=== PATIENT | male | born 1960 | race Caucasian/White ===

== ENCOUNTER 2019-04-10 09:59 | Inpatient (IN) | payer OTHER ==
[2019-04-10] MEDS ORDERED: NITROGLYCERIN SL TABS 0.4 MG TAB SUBLINGUAL STA ×3 (10:02)
[2019-04-10] MEDS ORDERED: ASPIRIN 81 MG PO STA (10:02)
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
[2019-04-10] MEDS ORDERED: LIDOCAINE 1% INJ 10MG/ML (20 ML MDV) ONE (10:11)
[2019-04-10] MEDS ORDERED: HEPARIN SODIUM,PORCINE 5,000 UNIT/ML 1 ML VIAL IV ONE (10:12)
--- NOTE | 2019-04-10 10:18 | XR ---
EXAMINATION TYPE: XR chest 1V portable DATE OF EXAM: 04/10/2019 Comparison: None Clinical History: 59-year-old male with chest pain Findings: The cardiomediastinal silhouette, aorta, and pulmonary vasculature are within normal limits. Periphe ral lung densities related to overlying soft tissue. Otherwise, lungs and pleural spaces are clear. Impression: No acute cardiopulmonary process.
--- NOTE | 2019-04-10 10:18 | P.CRDCN ---
History of Present Illness Consult date: 04/10/19 History of present illness: This is a 59-year-old gentleman with no significant past medical history has been having intermittent chest pains for the last 2 days. Around 2:30 this morning, the pain became more steady and described as a burning sensation across the precordial area with radiation to the left arm. Patient has some nausea. He has taken some Motrin at home. His patient was still having chest discomfort described as 5 on a scale of 1-10. His EKG showed ST elevation in the anterior lateral leads suggestive of anterolateral NJ. Patient is advised to have a cardiac catheterization with intervention of primary intervention. No arrhythmias, at this time Review of Systems Not obtained Past Medical History Past Medical History: No Reported History History of Any Multi-Drug Resistant Organisms: None Reported Past Surgical History: No Surgical Hx Reported Smoking Status: Never smoker Past Alcohol Use History: Rare Past Drug Use History: None Reported Medications and Allergies Home Medications Medication Instructions Recorded Confirmed Type No Known Home Medications 04/10/19 04/10/19 History Physical Exam Vitals: Vital Signs Temp Pulse Resp BP Pulse Ox 04/10/19 10:02 98.0 F 87 16 156/94 95 Intake and Output 04/09/19 04/10/19 04/10/19 22:59 06:59 14:59 Other: Weight 92.533 kg GENERAL EXAM: Patient is alert and oriented and doesn't appear to be in any acute distress HEENT: Normocephalic. Normal reaction of pupils, equal size, normal range of extraocular motion. No erythema or exudates in the throat. NECK: No masses, no nuchal rigidity. CHEST: No chest wall deformity. LUNGS: Equal air entry with no crackles or wheeze. HEART: S1 and S2 normal with no audible mumurs or gallops. Regular rhythm, femorals equal on both sides.. ABDOMEN: No hepatosplenomegaly, normal bowel sounds, no guarding or rigidity. SKIN: No rashes CENTRAL NERVOUS SYSTEM: No focal deficits. EXTREMITIES: No cyanosis, clubbing or edema. Results Current Medications Generic Name Dose Route Start Last Admin Trade Name Freq PRN Reason Stop Dose Admin Heparin Sodium (Porcine) 4,000 unit 04/10/19 10:12 Heparin IV 04/10/19 10:13 ONCE ONE Intake and Output 04/09/19 04/10/19 04/10/19 22:59 06:59 14:59 Other: Weight 92.533 kg Patient Weight 04/11/19 06:59 Weight 92.533 kg EKG Interpretations (text) Sinus rhythm with signs of acute anterolateral wall NJ Assessment and Plan (1) Acute anterior wall NJ Current Visit: Yes Status: Acute Code(s): I21.09 - STEMI INVOLVING OTH CORONARY ARTERY OF ANTERIOR WALL SNOMED Code(s): 95963745 Plan: Procedure with cardiac catheterization with the intention of primary intervention. Meanwhile, continue with aspirin, Plavix, heparin, beta blockers, nitrates along with lipid-lowering agent.
[2019-04-10] MEDS ORDERED: SODIUM CHLORIDE 0.9% 1,000 ML IV ONE (10:20)
[2019-04-10] MEDS ORDERED: fentaNYL (PF) 50 MCG/ML 2 ML AMP ONE (10:22)
[2019-04-10] MEDS ORDERED: fentaNYL (PF) 50 MCG/ML 2 ML AMP IV ONE (10:24)
[2019-04-10] MEDS ORDERED: MIDAZOLAM (PF) 2 MG/2 ML VIAL IV ONE (10:24)
[2019-04-10] MEDS ORDERED: LIDOCAINE 1% INJ 10MG/ML (20 ML MDV) SQ ONE (10:25)
[2019-04-10] MEDS ORDERED: TICAGRELOR 90 MG TAB ONE (10:39)
[2019-04-10] MEDS ORDERED: BIVALIRUDIN BOLUS 250 MG/50 ML IV ONE (10:42)
[2019-04-10] MEDS ORDERED: TICAGRELOR 90 MG TAB PO ONE (10:43)
[2019-04-10] MEDS ORDERED: BIVALIRUDIN 250 MG in SODIUM CHLORIDE 0.9% 50 ML IV ONE (10:43)
--- NOTE | 2019-04-10 10:48 | P.CARDCATH ---
Date of Procedure: 04/10/19 Preoperative Diagnosis: Acute anterior wall DE Postoperative Diagnosis: Total occlusion of the mid LAD. There is also moderate disease of the left main and also appears to be ostial lesion of the circumflex. Procedure(s) Performed: Left heart catheterization without left ventriculography Description of Procedure: HISTORY: This is a 59-year-old gentleman with no significant past medical history who came with complaints of recurrent chest pain for the last 2 days but more consistent since 2:00 this morning. His EKGs consistent with anterior wall DE. Patient is advised to have catheterization for definitive diagnosis with the intention of primary intervention. CONSENT:I have discussed the risks, benefits and alternative therapies for the above-mentioned procedure and for both sedation/analgesia as well as necessary blood product administration, if indicated, as they pertain to this patient. The patient has indicated understanding and acceptance of the risks and procedures discussed. PROCEDURE: Patient was brought to the lab in a fasting state. Patient was given some IV sedation. The right groin is infiltrated with lidocaine and right femoral artery was entered using Seldinger technique. A 6-New Zealander catheter was left in place and selective coronary arteriography was performed. Patient tolerated the procedure well. No immediate complications. Patient went on to have stent placement of the LAD by Dr. Carranza. Conscious Sedation: Versed 1mg Fentanyl 50 g Duration 14minutes HEMODYNAMICS: The aortic pressure is about 130/66. Left ventricular end- diastolic pressure is about pressure SELECTIVE CORONARY ARTERIOGRAPHY: LEFT MAIN: Calcified with diffuse disease with about 30-40% luminal narrowing. THE LEFT ANTERIOR DESCENDING CORONARY ARTERY: Calcified vessel with total occlusion of the mid LAD after the first diagonal and the first diagonal has about 50-60% lesion THE LEFT CIRCUMFLEX AND IS CORONARY ARTERY:. The proximal circumflex and ostial circumflex is calcified with about 50-60% luminal narrowing in the rest of the vessel is free of occlusive disease THE RIGHT CORONARY ARTERY:. Moderate caliber vessel free of any significant occlusive disease LEFT VENTRICULOGRAPHY:. Not performed FINAL IMPRESSION:. Total occlusion of the mid LAD. Moderate left main disease and also ostial disease of the circumflex. Moderate disease involving the diagonal PLAN: Stent placement of LAD PROGNOSIS: Guarded
[2019-04-10] MEDS ORDERED: NITROGLYCERIN 1000MCG/10ML SYRINGE INTRACORON ONE (10:56)
[2019-04-10] MEDS ORDERED: IOPAMIDOL-370 125ML BTL INJ ONE (10:56)
[2019-04-10] MEDS: niCARdipine Syringe (1,000 mcg/10 mL) INTRACORON ONE ×2 (11:00→11:03)
[2019-04-10] MEDS ORDERED: niCARdipine Syringe (1,000 mcg/10 mL) INTRACORON ONE (11:02)
[2019-04-10] MEDS ORDERED: IOPAMIDOL-370 100ML BTL INJ ONE (11:05)
[2019-04-10] MEDS ORDERED: NITROGLYCERIN SL TABS 0.4 MG TAB SUBLINGUAL PRN (11:29)
[2019-04-10] MEDS ORDERED: ZOLPIDEM 5 MG TAB PO PRN (11:29)
[2019-04-10] MEDS ORDERED: MAG HYDROX/AL HYDROX/SIMETH 30 ML CUP PO PRN (11:29)
[2019-04-10] MEDS ORDERED: ATROPINE SULFATE 0.1 MG/ML 10ML SYRINGE IV PRN (11:29)
[2019-04-10] MEDS ORDERED: RX INFO: IV CONTRAST WAS GIVEN 1 EACH MISC MISCELLANE PRN (11:29)
[2019-04-10] MEDS ORDERED: SODIUM CHLORIDE 0.9% 1,000 ML IV SCH (11:30)
[2019-04-10 11:35] LABS: Anisocytosis Slight; Basophils % (A) 0 %; Eosinophils % (A) 0 %; HGB 13.9 gm/dL (13.0-17.5); Lymphocytes # (A) 0.4 k/uL (1.0-4.8); Lymphocytes % (A) 5 %; MCH 29.8 pg (25.0-35.0); MCHC 35.7 g/dL (31.0-37.0); MCV 83.6 fL (80.0-100.0); Mean Platelet Volume 6.9; Monocytes # (A) 0.2 k/uL (0-1.0); Monocytes % (A) 3 %; Neutrophils # (A) 7.6 k/uL (1.3-7.7); Neutrophils % (A) 92 %; Platelet Count 163 k/uL (150-450); RBC 4.67 m/uL (4.30-5.90); WBC 8.3 k/uL (3.8-10.6)
[2019-04-10 11:42] LABS: African American GFR (CKD) >90 (>60 ml/min/1.73 sqM); Blood Urea Nitrogen 12 mg/dL (9-20)
[2019-04-10 11:55] LABS: Prothrombin Time 65.6 sec (9.0-12.0)
[2019-04-10 11:57] LABS: INR 6.8 (<1.2)
[2019-04-10 12:10] LABS: Glucose,Whole Blood 137 mg/dL (75-99)
--- NOTE | 2019-04-10 12:36 | PTCA ---
PERCUTANEOUSTRANS CORORONARY ANGIOGRAPHY CORONARY ANGIOPLASTY PROCEDURE NOTE: Mr. Mcconnell is a 59-year-old male with no prior documented history of cardiac disease who presented to the emergency room with an acute anterior myocardial infarction, underwent cardiac catheterization by Dr. Anders and was found to have a totally occluded proximal LAD. In view of that, recommendation was made regarding angioplasty and stenting. The procedures, risks, and complication were discussed with the patient who is in full understanding and agreement. PROCEDURE: A 6-Persian FR4 guiding catheter introduced into the system after stenting the left main. A 0.014 balanced medium weight J-wire was advanced across the lesion, positioned distally, then a 2.5 x 12 mm Trek balloon was advanced and multiple inflations, maximum of 10 atmospheres were done. Following that, the balloon was removed and a 3.0 x 23 L Xience Lizbeth stent was deployed postdilated at 16 atmospheres, following that the balloon was removed and a 3.0 x 12 mm Xience Lizbeth stent was advanced and deployed proximal to the first one and postdilated to 16 atmospheres. After the last inflation, after appropriate wait, the balloon and the guidewire were withdrawn back in the guiding catheter. Images were obtained and repeated. Those images reveal stable successful stenting. At that point, the guiding catheter, the balloon and the guidewire were removed. The sheath was removed. Hemostasis was obtained with deployment of an Angio-Seal. There was no immediate complication. Patient is returned to his room in stable condition. Of note, the patient's chest discomfort resulted in procedure and his EKG changes improved. He received Angiomax per protocol as well as oral loading dose of Brilinta. He received intracoronary nicardipine during the procedure. RESULTS: Successful stenting of the proximal LAD with reduction of stenosis from 99% to 0%. RECOMMENDATION: Patient will be continued on aspirin, Brilinta, beta isabel, JIM inhibitor and statin. The importance of dual antiplatelet treatment were discussed with the patient and his family and they are in full understanding and agreement. Duration of procedure is 44 minutes. MMODL / IJN: [id number] /
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
[2019-04-10 13:49] VITALS: BMI 31.9
[2019-04-10] MEDS ORDERED: HYDROmorphone 0.5 MG/0.5 ML SYRINGE IVP PRN (16:35)
[2019-04-10] MEDS ORDERED: ONDANSETRON 4 MG/2 ML VIAL IVP PRN (18:58)
[2019-04-10] MEDS: METOPROLOL TARTRATE 25 MG TAB PO SCH (21:13)
[2019-04-10] MEDS: TICAGRELOR 90 MG TAB PO SCH (21:13)
[2019-04-10] MEDS: LISINOPRIL 2.5 MG TAB PO SCH (21:13)
[2019-04-11 01:10] LABS: Hemoglobin A1C 5.3 % (4.0-6.0)
[2019-04-11 05:10] LABS: Basophils % (A) 0 %; Eosinophils # (A) 0.1 k/uL (0-0.7); Eosinophils % (A) 0 %; HCT 44.8 % (39.0-53.0); HGB 15.6 gm/dL (13.0-17.5); Lymphocytes # (A) 0.8 k/uL (1.0-4.8); Lymphocytes % (A) 7 %; MCH 29.6 pg (25.0-35.0); MCHC 34.8 g/dL (31.0-37.0); MCV 85.1 fL (80.0-100.0); Mean Platelet Volume 6.9; Monocytes # (A) 0.6 k/uL (0-1.0); Monocytes % (A) 5 %; Neutrophils # (A) 10.4 k/uL (1.3-7.7); Neutrophils % (A) 87 %; Platelet Count 198 k/uL (150-450); RBC 5.27 m/uL (4.30-5.90); RDW 15.6 % (11.5-15.5)
[2019-04-11 05:22] LABS: African American GFR (CKD) >90 (>60 ml/min/1.73 sqM); Anion Gap 6 mmol/L; Blood Urea Nitrogen 11 mg/dL (9-20); Carbon Dioxide 31 mmol/L (22-30); Chloride 102 mmol/L (98-107); Cholesterol 191 mg/dL (<200); Glucose 153 mg/dL (74-99); HDL Cholesterol 40 mg/dL (40-60); LDL Cholesterol,Calculated 135 mg/dL (0-99); Potassium 3.7 mmol/L (3.5-5.1); Sodium 139 mmol/L (137-145); Triglycerides 79 mg/dL (<150)
[2019-04-11] MEDS: SPIRONOLACTONE 25 MG TAB PO SCH (08:42)
[2019-04-11] MEDS: LISINOPRIL 2.5 MG TAB PO SCH ×2 (08:42→20:27)
[2019-04-11] MEDS: ASPIRIN 81 MG PO SCH (08:42)
[2019-04-11] MEDS: METOPROLOL TARTRATE 25 MG TAB PO SCH ×2 (08:42→20:27)
[2019-04-11] MEDS: TICAGRELOR 90 MG TAB PO SCH ×2 (08:42→20:27)
--- NOTE | 2019-04-11 10:42 | ECHOF ---
Referral Reason:mi MEASUREMENTS -------- HEIGHT: 170.2 cm WEIGHT: 92.5 kg BP: 139/79 RVIDd: 3.2 cm (< 3.3) IVSd: 1.4 cm (0.6 - 1.1) LVIDd: 3.7 cm (3.9 - 5.3) LVPWd: 1.8 cm (0.6 - 1.1) IVSs: 1.5 cm LVIDs: 2.6 cm LVPWs: 1.9 cm LAESV Index (A-L): 18.15 ml/m Ao Diam: 3.4 cm (2.0 - 3.7) AV Cusp: 1.8 cm (1.5 - 2.6) LA Diam: 3.5 cm (2.7 - 3.8) MV E Montez: 0.57 m/s MV DecT: 199 ms MV A Montez: 0.76 m/s MV E/A Ratio: 0.75 RAP: 5.00 mmHg RVSP: 30.32 mmHg FINDINGS -------- Sinus rhythm. This was a technically adequate study. The left ventricular size is normal. There is moderate concentric left ventricular hypertrophy. O verall left ventricular systolic function is moderately impaired with, an EF between 35 - 40 %. Heath ral Doppler inflow pattern suggests diastolic filling abnormality. Mid anterior LV wall motion is h ypokinetic. Mid anteroseptal LV wall motion is hypokinetic. Apical anterior LV wall motion is h ypokinetic. Apical lateral LV wall motion is hypokinetic. Apical septum LV wall motion is hypok inetic. The right ventricle is normal in size. Left atrium is normal size by volume. The right atrial size is normal. Interatrial and interventricular septum intact. The aortic valve is trileaflet, and appears structurally normal. No aortic stenosis or regurgitation. The mitral valve is normal. Mild mitral regurgitation is present. Mild tricuspid regurgitation present. There is no evidence of pulmonary hypertension. The right v entricular systolic pressure, as measured by Doppler, is 30.32mmHg. There is no pulmonic regurgitation present. The aortic root size is normal. IVC not well visualized There is no pericardial effusion. CONCLUSIONS -------- 1. Sinus rhythm. 2. This was a technically adequate study. 3. The left ventricular size is normal. 4. There is moderate concentric left ventricular hypertrophy. 5. Overall left ventricular systolic function is moderately impaired with, an EF between 35 - 40 %. 6. Mitral Doppler inflow pattern suggests diastolic filling abnormality. 7. Mid anterior LV wall motion is hypokinetic. 8. Mid anteroseptal LV wall motion is hypokinetic. 9. Apical anterior LV wall motion is hypokinetic. 10. Apical lateral LV wall motion is hypokinetic. 11. Apical septum LV wall motion is hypokinetic. 12. Left atrium is normal size by volume. 13. The aortic valve is trileaflet, and appears structurally normal. No aortic stenosis or regurgitat ion. 14. Mild mitral regurgitation is present. 15. Mild tricuspid regurgitation present. 16. There is no evidence of pulmonary hypertension. 17. There is no pulmonic regurgitation present. 18. The aortic root size is normal. 19. IVC not well visualized 20. There is no pericardial effusion. CAN COVERER: Michelle Hanna RDCS
--- NOTE | 2019-04-11 13:40 | P.GSCN ---
History of Present Illness Consult date: 04/11/19 Reason for Consult: SBO Requesting physician: Jana Jovel History of present illness: CHIEF COMPLAINT: SBO HISTORY OF PRESENT ILLNESS: 59 year old male who underwent heart cath with stent placement yesterday. Patient reports having some nausea yesterday evening after his cath. General surgery was consulted for further evaluation. Patient seen and examined today in the intensive care unit. He denies abdominal pain. He states he never had abdominal pain yesterday, just nausea. Nausea has resolved. No episodes of vomiting. He is passing gas. PAST MEDICAL HISTORY: See list. PAST SURGICAL HISTORY: See list. SOCIAL HISTORY: No illicit drug use. REVIEW OF SYSTEMS: CONSTITUTIONAL: Denies fever or chills. HEENT: Denies blurred vision, vision changes, or eye pain. Denies hemoptysis CARDIOVASCULAR: Denies chest pain or pressure. RESPIRATORY: No shortness of breath. GASTROINTESTINAL: Refer to HPI for pertinent findings HEMATOLOGIC: Denies bleeding disorders. GENITOURINARY: Denies any blood in urine. SKIN: Denies pruitis. Denies rash. PHYSICAL EXAM: VITAL SIGNS: Reviewed. GENERAL: Well-developed in no acute distress. HEENT: No sclera icterus. Extraocular movements grossly intact. Moist buccal mucosa. Head is atraumatic, normocephalic. ABDOMEN: Soft. Nondistended. Nontender. NEUROLOGIC: Alert and oriented. Cranial nerves II through XII grossly intact. ASSESSMENT: 1. Nausea, s/p cardiac cath PLAN: Patient with some mild nausea after cardiac cath that has resolved at time of examination. He is no clinical signs of small bowel obstruction. Will obtain Xr abdomen 2v. Patient may continue diet as tolerated. Nurse practitioner note has been reviewed by physician. Signing provider agrees with the documented findings, assessment, and plan of care. Past Medical History Past Medical History: No Reported History History of Any Multi-Drug Resistant Organisms: None Reported Past Surgical History: No Surgical Hx Reported Past Anesthesia/Blood Transfusion Reactions: No Reported Reaction Past Psychological History: No Psychological Hx Reported Smoking Status: Never smoker Past Alcohol Use History: Rare Past Drug Use History: None Reported - Past Family History Father Family Medical History: Cancer Medications and Allergies Home Medications Medication Instructions Recorded Confirmed Type No Known Home Medications 04/10/19 04/10/19 History Allergies Allergy/AdvReac Type Severity Reaction Status Date / Time No Known Allergies Allergy Verified 04/10/19 10:52 Surgical - Exam Vital Signs Temp Pulse Resp BP Pulse Ox 98.0 F 87 16 156/94 95 04/10/19 10:02 04/10/19 10:02 04/10/19 10:02 04/10/19 10:02 04/10/19 10:02 Results - Labs 04/11/19 04:17 04/11/19 04:17 Abnormal Lab Results - Last 24 Hours (Table) 04/10/19 04/10/19 04/10/19 Range/Units 17:13 17:13 22:31 WBC (3.8-10.6) k/uL RDW (11.5-15.5) % Neutrophils # (1.3-7.7) k/uL Lymphocytes # (1.0-4.8) k/uL Carbon Dioxide (22-30) mmol/L Glucose (74-99) mg/dL Troponin I 183.000 H* 135.000 H* (0.000-0.034) ng/mL LDL Cholesterol, Calc 136 H (0-99) mg/dL HDL Cholesterol 38 L (40-60) mg/dL 04/11/19 04/11/19 04/11/19 Range/Units 04:17 04:17 04:17 WBC 12.0 H (3.8-10.6) k/uL RDW 15.6 H (11.5-15.5) % Neutrophils # 10.4 H (1.3-7.7) k/uL Lymphocytes # 0.8 L (1.0-4.8) k/uL Carbon Dioxide 31 H (22-30) mmol/L Glucose 153 H (74-99) mg/dL Troponin I 78.500 H* (0.000-0.034) ng/mL LDL Cholesterol, Calc 135 H (0-99) mg/dL HDL Cholesterol (40-60) mg/dL Diabetes panel 04/10/19 04/10/19 04/11/19 Range/Units 17:13 17:13 04:17 Sodium 139 (137-145) mmol/L Potassium 3.7 (3.5-5.1) mmol/L Chloride 102 (98-107) mmol/L Carbon Dioxide 31 H (22-30) mmol/L BUN 11 (9-20) mg/dL Creatinine 0.96 (0.66-1.25) mg/dL Glucose 153 H (74-99) mg/dL Hemoglobin A1c 5.3 (4.0-6.0) % Calcium 9.0 (8.4-10.2) mg/dL Triglycerides 109 79 (<150) mg/dL HDL Cholesterol 38 L 40 (40-60) mg/dL Thyroid panel 04/10/19 Range/Units 17:13 TSH 2.500 (0.465-4.680) mIU/L Calcium panel 04/11/19 Range/Units 04:17 Calcium 9.0 (8.4-10.2) mg/dL Pituitary panel 04/10/19 04/11/19 Range/Units 17:13 04:17 Sodium 139 (137-145) mmol/L Potassium 3.7 (3.5-5.1) mmol/L Chloride 102 (98-107) mmol/L Carbon Dioxide 31 H (22-30) mmol/L BUN 11 (9-20) mg/dL Creatinine 0.96 (0.66-1.25) mg/dL Glucose 153 H (74-99) mg/dL Calcium 9.0 (8.4-10.2) mg/dL TSH 2.500 (0.465-4.680) mIU/L Adrenal panel 04/11/19 Range/Units 04:17 Sodium 139 (137-145) mmol/L Potassium 3.7 (3.5-5.1) mmol/L Chloride 102 (98-107) mmol/L Carbon Dioxide 31 H (22-30) mmol/L BUN 11 (9-20) mg/dL Creatinine 0.96 (0.66-1.25) mg/dL Glucose 153 H (74-99) mg/dL Calcium 9.0 (8.4-10.2) mg/dL
--- NOTE | 2019-04-11 16:04 | XR ---
EXAMINATION TYPE: XR abdomen 2V DATE OF EXAM: 04/11/2019 1:54 PM CLINICAL HISTORY: Abdominal pain TECHNIQUE: Upright and supine images of the abdomen were obtained. COMPARISON: None. FINDINGS: Hypodensity is seen within the urinary bladder, correlate with any recent ingested material or contrast. Lung bases are well aerated. No suspicious calcification in the abdomen or pelvis. Mode rate degenerative changes of the femoral acetabular joints and mild degenerative changes of the lumbo sacral junction. No dilated large or small bowel. IMPRESSION: 1. Nonobstructive bowel gas pattern. 2. High density within the urinary bladder may relate to recent intravenous contrast or high density ingested substance. Correlate with history.
--- NOTE | 2019-04-11 17:32 | P.PN ---
Subjective Progress Note Date: 04/11/19 This 59-year-old gentleman was admitted with acute anterior wall microinfarction. Patient came about 8 hours after the onset of pains which were continuous. Patient had intermittent chest pain for 2-3 days prior to admission. Patient is clinically doing well since we put the stent. Patient had some nausea yesterday but has cleared. No arrhythmias were detected. Blood work is stable. Echo Cardigan showed severe hypokinesis of the anteroapical segment with an ejection fraction of 35-40%. Lungs are clear. Heart is regular. Patient is tolerating activity. Patient to be transferred to stepdown unit. Possible discharge within next 24-48 hours Objective - Vital Signs Vital signs: Vital Signs Temp 98.7 F 04/11/19 16:00 Pulse 67 04/11/19 13:00 Resp 18 04/11/19 16:00 BP 115/74 04/11/19 16:00 Pulse Ox 97 04/11/19 16:00 Intake & Output 04/10/19 04/11/19 04/11/19 18:59 06:59 18:59 Intake Total 670 1160 250 Output Total 185 300 Balance 670 975 -50 Weight 92.533 kg 97.2 kg Intake: IV 670 440 Sodium Chloride 0.9% 1, 525 440 000 ml @ 75 mls/hr IV . [id number] [facility] Rx#:[id number] Oral 720 250 Output: Urine 185 300 Other: Voiding Method Urinal # Voids 1 2 - Exam GENERAL EXAM: Patient is alert and oriented and doesn't appear to be in any acute distress HEENT: Normocephalic. Normal reaction of pupils, equal size, normal range of extraocular motion. No erythema or exudates in the throat. NECK: No masses, no nuchal rigidity. CHEST: No chest wall deformity. LUNGS: Equal air entry with no crackles or wheeze. HEART: S1 and S2 normal with no audible mumurs or gallops. Regular rhythm, femorals equal on both sides.. ABDOMEN: No hepatosplenomegaly, normal bowel sounds, no guarding or rigidity. SKIN: No rashes CENTRAL NERVOUS SYSTEM: No focal deficits. EXTREMITIES: No cyanosis, clubbing or edema. - Labs CBC & Chem 7: 04/11/19 04:17 04/11/19 04:17 Labs: Abnormal Lab Results - Last 24 Hours (Table) 04/10/19 04/10/19 04/10/19 Range/Units 17:13 17:13 22:31 WBC (3.8-10.6) k/uL RDW (11.5-15.5) % Neutrophils # (1.3-7.7) k/uL Lymphocytes # (1.0-4.8) k/uL Carbon Dioxide (22-30) mmol/L Glucose (74-99) mg/dL Troponin I 183.000 H* 135.000 H* (0.000-0.034) ng/mL LDL Cholesterol, Calc 136 H (0-99) mg/dL HDL Cholesterol 38 L (40-60) mg/dL 04/11/19 04/11/19 04/11/19 Range/Units 04:17 04:17 04:17 WBC 12.0 H (3.8-10.6) k/uL RDW 15.6 H (11.5-15.5) % Neutrophils # 10.4 H (1.3-7.7) k/uL Lymphocytes # 0.8 L (1.0-4.8) k/uL Carbon Dioxide 31 H (22-30) mmol/L Glucose 153 H (74-99) mg/dL Troponin I 78.500 H* (0.000-0.034) ng/mL LDL Cholesterol, Calc 135 H (0-99) mg/dL HDL Cholesterol (40-60) mg/dL Assessment and Plan (1) Acute anterior wall [place] Current Visit: Yes Status: Acute Code(s): I21.09 - STEMI INVOLVING OTH CORONARY ARTERY OF ANTERIOR WALL SNOMED Code(s): 66458248 (2) Ischemic cardiomyopathy Current Visit: Yes Status: Acute Code(s): I25.5 - ISCHEMIC CARDIOMYOPATHY SNOMED Code(s): 975918725 Plan: Patient is status post and wall [place] and stent placement. Clinically stable. Tolerating medications. Being transferred to stepdown unit.
[2019-04-11] MEDS: ATORVASTATIN 80 MG TAB PO SCH (20:27)
--- NOTE | 2019-04-12 09:30 | P.PN ---
Subjective Progress Note Date: 04/12/19 This 59-year-old gentleman was admitted with acute anterior wall microinfarction. Patient came about 8 hours after the onset of pains which were continuous. Patient had intermittent chest pain for 2-3 days prior to admission. Patient is clinically doing well since we put the stent. Patient had some nausea yesterday but has cleared. No arrhythmias were detected. Blood work is stable. Echo Cardigan showed severe hypokinesis of the anteroapical segment with an ejection fraction of 35-40%. Lungs are clear. Heart is regular. Patient is tolerating activity. Patient to be transferred to stepdown unit. Possible discharge within next 24-48 hours 04/12/2014. This patient is admitted with anterior wall myocardial infarction. Had stent placement. Patient is relatively stable. Denies any chest pain or shortness of breath. No arrhythmias. Echo showed severe hypokinesis of the anteroapical wall with an ejection fraction 35%. Patient. Activities to be increased. If stable patient be discharged home in the morning. Objective - Vital Signs Vital signs: Vital Signs Temp 98.4 F 04/12/19 08:00 Pulse 75 04/12/19 08:00 Resp 16 04/12/19 08:00 BP 102/62 04/12/19 08:00 Pulse Ox 94 L 04/12/19 08:00 Intake & Output 04/11/19 04/12/19 04/12/19 18:59 06:59 18:59 Intake Total 250 Output Total 300 200 Balance -50 -200 Weight 96.4 kg Intake: Oral 250 Output: Urine 300 200 Other: # Voids 2 - Exam GENERAL EXAM: Patient is alert and oriented and doesn't appear to be in any acute distress HEENT: Normocephalic. Normal reaction of pupils, equal size, normal range of extraocular motion. No erythema or exudates in the throat. NECK: No masses, no nuchal rigidity. CHEST: No chest wall deformity. LUNGS: Equal air entry with no crackles or wheeze. HEART: S1 and S2 normal with no audible mumurs or gallops. Regular rhythm, femorals equal on both sides.. ABDOMEN: No hepatosplenomegaly, normal bowel sounds, no guarding or rigidity. SKIN: No rashes CENTRAL NERVOUS SYSTEM: No focal deficits. EXTREMITIES: No cyanosis, clubbing or edema. - Labs CBC & Chem 7: 04/11/19 04:17 04/11/19 04:17 Assessment and Plan (1) Acute anterior wall [place] Current Visit: Yes Status: Acute Code(s): I21.09 - STEMI INVOLVING OTH CORONARY ARTERY OF ANTERIOR WALL SNOMED Code(s): 22416806 (2) Ischemic cardiomyopathy Current Visit: Yes Status: Acute Code(s): I25.5 - ISCHEMIC CARDIOMYOPATHY SNOMED Code(s): 099102819 Plan: Clinically doing well. Tolerating activity. Continue current medical therapy. Discharge patient in a.m.
[2019-04-12] MEDS: LISINOPRIL 2.5 MG TAB PO SCH ×2 (09:57→21:28)
[2019-04-12] MEDS: ASPIRIN 81 MG PO SCH (09:57)
[2019-04-12] MEDS: TICAGRELOR 90 MG TAB PO SCH ×2 (09:57→21:28)
[2019-04-12] MEDS: METOPROLOL TARTRATE 25 MG TAB PO SCH ×2 (09:58→21:28)
[2019-04-12] MEDS: SPIRONOLACTONE 25 MG TAB PO SCH (09:58)
--- NOTE | 2019-04-12 10:36 | P.PN ---
Subjective Progress Note Date: 04/12/19 CHIEF COMPLAINT: SBO HISTORY OF PRESENT ILLNESS: Patient examined at the bedside. Denies abdominal pain. Denies nausea or vomiting. Passing flatus. Tolerating diet. Abdominal xray completed yesterday reveals nonobstructive bowel gas pattern. PHYSICAL EXAM: VITAL SIGNS: Reviewed. GENERAL: Well-developed in no acute distress. HEENT: No sclera icterus. Extraocular movements grossly intact. Moist buccal mucosa. Head is atraumatic, normocephalic. ABDOMEN: Soft. Nondistended. Nontender. NEUROLOGIC: Alert and oriented. Cranial nerves II through XII grossly intact. ASSESSMENT: 1. Nausea, s/p cardiac cath, SBO ruled out PLAN: Diet as tolerated No surgical intervention recommended Discharge per medicine We will sign off. Please reconsult if needed Nurse practitioner note has been reviewed by physician. Signing provider agrees with the documented findings, assessment, and plan of care. Objective - Vital Signs Vital signs: Vital Signs Temp 98.4 F 04/12/19 08:00 Pulse 75 04/12/19 08:00 Resp 16 04/12/19 08:00 BP 102/62 04/12/19 08:00 Pulse Ox 94 L 04/12/19 08:00 Intake & Output 04/11/19 04/12/19 04/12/19 18:59 06:59 18:59 Intake Total 250 Output Total 300 200 Balance -50 -200 Weight 96.4 kg Intake: Oral 250 Output: Urine 300 200 Other: # Voids 2 - Labs CBC & Chem 7: 04/11/19 04:17 04/11/19 04:17
--- NOTE | 2019-04-12 18:15 | P.PN ---
Subjective Progress Note Date: 04/11/19 This is a 59-year-old gentleman admitted with acute anterior wall [place], status post PTCA with stenting of the LAD. Tolerated procedure well. Denies chest pain, palpitations or shortness of breath. Echo reporting moderate concentric left ventricular hypertrophy, EF 35-40%, severe hypokinesis of the anterior apical segment. Post cath, Poor diet intake during the night, accompanied by nausea , which has subsided. Also reported bloating, now passing flatus. Better intake this morning. Evaluated by surgery , two-view abdomen ordered. Objective - Vital Signs Vital signs: Vital Signs Temp 98.2 F 04/11/19 08:00 Pulse 73 04/11/19 09:00 Resp 11 L 04/11/19 09:00 BP 129/78 04/11/19 09:00 Pulse Ox 95 04/11/19 09:00 Intake & Output 04/10/19 04/11/19 04/11/19 18:59 06:59 18:59 Intake Total 670 1160 50 Output Total 185 0 Balance 670 975 50 Weight 92.533 kg 97.2 kg Intake: IV 670 440 Sodium Chloride 0.9% 1, 525 440 000 ml @ 75 mls/hr IV . [id number] Rx#:[id number] Oral 720 50 Output: Urine 185 0 Other: Voiding Method Urinal # Voids 1 1 - Exam PHYSICAL EXAM: VITAL SIGNS: As above GENERAL: Sitting up in bed, no acute distress HEENT: Conjunctivae normal. eyes normal. NECK: No JVD. No thyroid enlargement. No LNs CARDIOVASCULAR: S1, S2 regular.. No murmur RESPIRATION: Breath sounds diminished in the bases. No rhonchi or crackles. No bronchial breathing. ABDOMEN: Soft, minimal distention, nontender . No guarding. no masses palpable. No ascites, No hepatosplenomegaly.Bowel sounds heard. LEGS: No edema. no swelling . No calf tenderness PSYCHIATRY: Alert and oriented X3, mood and affect normal. NERVOUS SYSTEM: Cranial N 2-12 grossly normal. Moves all 4 limbs. Diffuse weakness No focal deficits. Strength and sensation grossly intact.. Skin: no lesions, no rash Joints: No active swelling. No inflammation. Lymphatic system. No LN neck axilla or groin. - Labs CBC & Chem 7: 04/11/19 04:17 04/11/19 04:17 Labs: Abnormal Lab Results - Last 24 Hours (Table) 04/10/19 04/10/19 04/10/19 Range/Units 11:00 11:00 11:00 WBC (3.8-10.6) k/uL RDW 17.0 H (11.5-15.5) % Neutrophils # (1.3-7.7) k/uL Lymphocytes # 0.4 L (1.0-4.8) k/uL PT 65.6 H (9.0-12.0) sec INR 6.8 H* (<1.2) Carbon Dioxide (22-30) mmol/L Glucose (74-99) mg/dL POC Glucose (mg/dL) (75-99) mg/dL Troponin I 6.810 H* (0.000-0.034) ng/mL LDL Cholesterol, Calc (0-99) mg/dL HDL Cholesterol (40-60) mg/dL 04/10/19 04/10/19 04/10/19 Range/Units 11:45 17:13 17:13 WBC (3.8-10.6) k/uL RDW (11.5-15.5) % Neutrophils # (1.3-7.7) k/uL Lymphocytes # (1.0-4.8) k/uL PT (9.0-12.0) sec INR (<1.2) Carbon Dioxide (22-30) mmol/L Glucose (74-99) mg/dL POC Glucose (mg/dL) 137 H (75-99) mg/dL Troponin I 183.000 H* (0.000-0.034) ng/mL LDL Cholesterol, Calc 136 H (0-99) mg/dL HDL Cholesterol 38 L (40-60) mg/dL 04/10/19 04/11/19 04/11/19 Range/Units 22:31 04:17 04:17 WBC 12.0 H (3.8-10.6) k/uL RDW 15.6 H (11.5-15.5) % Neutrophils # 10.4 H (1.3-7.7) k/uL Lymphocytes # 0.8 L (1.0-4.8) k/uL PT (9.0-12.0) sec INR (<1.2) Carbon Dioxide 31 H (22-30) mmol/L Glucose 153 H (74-99) mg/dL POC Glucose (mg/dL) (75-99) mg/dL Troponin I 135.000 H* (0.000-0.034) ng/mL LDL Cholesterol, Calc 135 H (0-99) mg/dL HDL Cholesterol (40-60) mg/dL 04/11/19 Range/Units 04:17 WBC (3.8-10.6) k/uL RDW (11.5-15.5) % Neutrophils # (1.3-7.7) k/uL Lymphocytes # (1.0-4.8) k/uL PT (9.0-12.0) sec INR (<1.2) Carbon Dioxide (22-30) mmol/L Glucose (74-99) mg/dL POC Glucose (mg/dL) (75-99) mg/dL Troponin I 78.500 H* (0.000-0.034) ng/mL LDL Cholesterol, Calc (0-99) mg/dL HDL Cholesterol (40-60) mg/dL Assessment and Plan Assessment: Acute anterior wall [place] status post PTCA with stenting of the LAD -Ischemic cardiomyopathy -Nausea status post cardiac cath, resolved Plan: Continue current medication regime ,monitoring and symptomatic treatment. Continue on statin beta isabel JIM inhibitor, Brilenta. Cardiology has cleared patient for transfer out of ICU to telemetry unit. Two-view abdomen pending. Increase ambulation as tolerated. Follow closely with cardiology. Discharge planning in progress, for tomorrow pending cardiology clearance. The impression and plan of care has been dictated as directed. : I performed a history and examination of this patient, discussed the same with the dictator. I agree with the dictator's note ,documented as a scribe. Any additional findings or plans will be noted.
--- NOTE | 2019-04-12 18:19 | P.PN ---
Subjective Progress Note Date: 04/12/19 This is a 59-year-old gentleman admitted with acute anterior wall [place], status post PTCA with stenting of the LAD. Tolerated procedure well. Denies chest pain, palpitations or shortness of breath. Echo reporting moderate concentric left ventricular hypertrophy, EF 35-40%, severe hypokinesis of the anterior apical segment. Post cath, Poor diet intake during the night, accompanied by nausea , which has subsided. Also reported bloating, now passing flatus. Better intake this morning. Evaluated by surgery , two-view abdomen ordered. 04/12/2019 subjective over flow. Continues to do well, sinus rhythm. Denies chest pain, palpitations or shortness of breath. Denies abdominal pain, nausea or vomiting. Two-view of abdomen reported nonobstructive bowel gas pattern. Objective - Vital Signs Vital signs: Vital Signs Temp 98.2 F 04/12/19 16:00 Pulse 70 04/12/19 16:00 Resp 13 04/12/19 16:00 BP 112/70 04/12/19 16:00 Pulse Ox 96 04/12/19 16:00 Intake & Output 04/11/19 04/12/19 04/12/19 18:59 06:59 18:59 Intake Total 250 Output Total 300 200 600 Balance -50 -200 -600 Weight 96.4 kg Intake: Oral 250 Output: Urine 300 200 600 Other: Voiding Method Urinal # Voids 2 - Exam PHYSICAL EXAM: VITAL SIGNS: As above GENERAL: Sitting up in bed, no acute distress HEENT: Conjunctivae normal. eyes normal. Oral mucosa moist NECK: No JVD. No thyroid enlargement. No LNs CARDIOVASCULAR: S1, S2 regular.No murmur RESPIRATION: Breath sounds diminished in the bases. No rhonchi or crackles. No bronchial breathing. ABDOMEN: Soft, minimal distention, nontender . No guarding. no masses palpable. No ascites, No hepatosplenomegaly.Bowel sounds heard. LEGS: No edema. no swelling . No calf tenderness PSYCHIATRY: Alert and oriented X3, mood and affect normal. NERVOUS SYSTEM: Cranial N 2-12 grossly normal. Moves all 4 limbs. Diffuse weakness No focal deficits. Strength and sensation grossly intact.. Skin: no lesions, no rash - Labs CBC & Chem 7: 04/11/19 04:17 04/11/19 04:17 Assessment and Plan Assessment: Acute anterior wall [place] status post PTCA with stenting of the LAD -Ischemic cardiomyopathy -Nausea status post cardiac cath, resolved Plan: Continue current medication regime ,monitoring and symptomatic treatment. Maintain statin ,beta isabel JIM inhibitor, Brilenta. Case management to verify outpatient Brilenta Rx coverage. Increase ambulation as tolerated. Follow closely with cardiology. Discharge planning in progress, for tomorrow pending cardiology clearance. The impression and plan of care has been dictated as directed. : I performed a history and examination of this patient, discussed the same with the dictator. I agree with the dictator's note ,documented as a scribe. Any additional findings or plans will be noted.
[2019-04-12] MEDS: ATORVASTATIN 80 MG TAB PO SCH (21:27)
[2019-04-13] MEDS ORDERED: CLOPIDOGREL 75 MG TAB PO STA (09:20)
[2019-04-13] MEDS: LISINOPRIL 2.5 MG TAB PO SCH (09:39)
[2019-04-13] MEDS: METOPROLOL TARTRATE 25 MG TAB PO SCH (09:39)
[2019-04-13] MEDS: ASPIRIN 81 MG PO SCH (09:39)
[2019-04-13] MEDS: SPIRONOLACTONE 25 MG TAB PO SCH (09:39)
--- NOTE | 2019-04-13 10:02 | P.PN ---
Subjective Progress Note Date: 04/13/19 This 59-year-old gentleman was admitted with acute anterior wall microinfarction. Patient came about 8 hours after the onset of pains which were continuous. Patient had intermittent chest pain for 2-3 days prior to admission. Patient is clinically doing well since we put the stent. Patient had some nausea yesterday but has cleared. No arrhythmias were detected. Blood work is stable. Echo Cardigan showed severe hypokinesis of the anteroapical segment with an ejection fraction of 35-40%. Lungs are clear. Heart is regular. Patient is tolerating activity. Patient to be transferred to stepdown unit. Possible discharge within next 24-48 hours 04/12/2019. This patient is admitted with anterior wall myocardial infarction. Had stent placement. Patient is relatively stable. Denies any chest pain or shortness of breath. No arrhythmias. Echo showed severe hypokinesis of the anteroapical wall with an ejection fraction 35%. Patient. Activities to be increased. If stable patient be discharged home in the morning. 04/13/2019 : This patient is admitted with anterior wall microinfarction and had stent placement of the LAD. He has a moderate disease in the left main and also ostium of circumflex. Patient has been stable since the procedure. Tolerating activity. No complaints of any chest pain or shortness of breath. Patient will continue current medical therapy. Follow-up in the office in about one week. She is advised to avoid any heavy lifting, pushing or pulling. He'll be joining cardiac rehab program after low-level stress test. Objective - Vital Signs Vital signs: Vital Signs Temp 98.4 F 04/13/19 08:00 Pulse 68 04/13/19 08:00 Resp 18 04/13/19 08:00 BP 122/79 04/13/19 08:00 Pulse Ox 96 04/13/19 08:00 Intake & Output 04/12/19 04/13/19 04/13/19 18:59 06:59 18:59 Intake Total 450 Output Total 600 Balance -600 450 Intake: Oral 450 Output: Urine 600 Other: Voiding Method Urinal Toilet # Voids 2 # Bowel Movements 1 - Exam GENERAL EXAM: Patient is alert and oriented and doesn't appear to be in any acute distress HEENT: Normocephalic. Normal reaction of pupils, equal size, normal range of extraocular motion. No erythema or exudates in the throat. NECK: No masses, no nuchal rigidity. CHEST: No chest wall deformity. LUNGS: Equal air entry with no crackles or wheeze. HEART: S1 and S2 normal with no audible mumurs or gallops. Regular rhythm, femorals equal on both sides.. ABDOMEN: No hepatosplenomegaly, normal bowel sounds, no guarding or rigidity. SKIN: No rashes CENTRAL NERVOUS SYSTEM: No focal deficits. EXTREMITIES: No cyanosis, clubbing or edema. - Labs CBC & Chem 7: 04/11/19 04:17 04/11/19 04:17 Assessment and Plan (1) Acute anterior wall [place] Current Visit: Yes Status: Acute Code(s): I21.09 - STEMI INVOLVING OTH CORONARY ARTERY OF ANTERIOR WALL SNOMED Code(s): 62324303 (2) Ischemic cardiomyopathy Current Visit: Yes Status: Acute Code(s): I25.5 - ISCHEMIC CARDIOMYOPATHY SNOMED Code(s): 226709328 Plan: Continue current medical therapy. Patient cannot afford Brillinta. We'll switch to Plavix with a loading dose. Patient could be discharged home .
[2019-04-13 12:23] VITALS: BP 110/78; PULSE 73; RESP 19; TEMP 98.7
--- NOTE | 2019-04-13 16:21 | P.DS ---
Providers Date of admission: 04/10/19 10:20 Expected date of discharge: 04/13/19 Attending physician: Suhas Howell Consults: 04/10/19 10:20 Consult Physician Stat Consulting Provider: Sofia Anders Consult Reason/Comments: stemi Do you want consulting provider notified?: Already Contacted 04/10/19 11:29 Consult Physician Routine Consulting Provider: [facility] Consult Reason/Comments: Post Interventional patient Do you want consulting provider notified?: Already Contacted 04/11/19 09:52 Consult Physician Routine Consulting Provider: Nba Keane Consult Reason/Comments: ?SBO, ileus Do you want consulting provider notified?: Yes Primary care physician: Stated None Hospital Course: Final Diagnoses: Acute anterior wall [place] status post PTCA with stenting of the LAD -Ischemic cardiomyopathy -Nausea status post cardiac cath, resolved Hospital course:This is a 59-year-old gentleman admitted with acute anterior wall [place], status post PTCA with stenting of the LAD. Tolerated procedure well. Denies chest pain, palpitations or shortness of breath. Echo reporting moderate concentric left ventricular hypertrophy, EF 35-40%, severe hypokinesis of the anterior apical segment. Post cath, Poor diet intake during the night, accompanied by nausea , which has subsided. Also reported bloating, now passing flatus. Better intake this morning. Evaluated by surgery , two-view abdomen ordered. 04/12/2019 selective over flow. Continues to do well, sinus rhythm. Denies chest pain, palpitations or shortness of breath. Denies abdominal pain, nausea or vomiting. Two-view of abdomen reported nonobstructive bowel gas pattern. Denies chest pain, palpitations or shortness of breath. Denies lightheadedness dizziness or focal deficits. Denies abdominal pain, nausea vomiting or diarrhea .Significant clinical improvement. Cleared by cardiology for discharge. Patient being discharged home in a stable condition with guarded prognosis. GENERAL: Alert & oriented X 3, no acute distress CARDIOVASCULAR: S1, S2 regular.No murmur RESPIRATION: Breath sounds diminished in the bases. No rhonchi or crackles. No wheezing. ABDOMEN: Soft, minimal distention, nontender . No guarding. no masses palpable.Bowel sounds heard. NERVOUS SYSTEM: No focal deficits. The impression and plan of care has been dictated as directed. : I performed a history and examination of this patient, discussed the same with the dictator. I agree with the dictator's note ,documented as a scribe. Any additional findings or plans will be noted. Patient Condition at Discharge: Stable Plan - Discharge Summary Discharge Rx Participant: Yes New Discharge Prescriptions: New Spironolactone [Aldactone] 25 mg PO DAILY #30 tab Aspirin EC [Ecotrin Low Dose] 81 mg PO DAILY #30 tablet. Atorvastatin [Lipitor] 80 mg PO HS #30 tab Metoprolol Tartrate [Lopressor] 25 mg PO BID #60 tab Nitroglycerin Sl Tabs [Nitrostat] 0.4 mg SUBLINGUAL Q5M PRN #100 tab PRN Reason: Chest Pain Lisinopril [Zestril] 2.5 mg PO BID #60 tab Clopidogrel Bisulfate [Plavix] 75 mg PO DAILY #30 tab Discharge Medication List Aspirin EC [Ecotrin Low Dose] 81 mg PO DAILY #30 tablet. 04/13/19 [Rx] Atorvastatin [Lipitor] 80 mg PO HS #30 tab 04/13/19 [Rx] Clopidogrel Bisulfate [Plavix] 75 mg PO DAILY #30 tab 04/13/19 [Rx] Lisinopril [Zestril] 2.5 mg PO BID #60 tab 04/13/19 [Rx] Metoprolol Tartrate [Lopressor] 25 mg PO BID #60 tab 04/13/19 [Rx] Nitroglycerin Sl Tabs [Nitrostat] 0.4 mg SUBLINGUAL Q5M PRN #100 tab 04/13/19 [Rx] Spironolactone [Aldactone] 25 mg PO DAILY #30 tab 04/13/19 [Rx] Follow up Appointment(s)/Referral(s): Suhas Howell MD [STAFF PHYSICIAN] - 1 Week (You need to be seen by Dr. Howell in one week. Please call Dr. Suhas Howell to make a follow up appointment. .) Sofia Anders MD [STAFF PHYSICIAN] - 1 Week (April 20 at 2:15pm) Ambulatory/Diagnostic Orders: Complete Blood Count w/diff [LAB.AMB] Time Frame: 3 Days, Location: None Selected Patient Instructions/Handouts: Heart Attack (DC), Chest Pain (GEN), Surgical Site Infections (DC) Activity/Diet/Wound Care/Special Instructions: COnfirm Cardiology final dc rec/Clearance. Confirm cardiology F/U apt. prior to dc. Discharge Disposition: HOME SELF-CARE
== END 2019-04-13 15:35 | disposition home or self-care (01) | DRG 247 ==
LOC: EC 09:59 → 2SICU 10:20
PROVIDERS: ADMIT Family Medicine; ATTEND Family Medicine
PROC: 4A023N7 Measurement of Cardiac Sampling and Pressure, Left Heart, Percutaneous Approach (ICD-10-PCS; 2019-04-10)
PROC: B2111ZZ Fluoroscopy of Multiple Coronary Arteries using Low Osmolar Contrast (ICD-10-PCS; 2019-04-10)
PROC: 027034Z Dilation of Coronary Artery, One Artery with Drug-eluting Intraluminal Device, Percutaneous Approach (ICD-10-PCS; principal; 2019-04-10 10:14)
PROC: 3E073GC Introduction of Other Therapeutic Substance into Coronary Artery, Percutaneous Approach (ICD-10-PCS; 2019-04-10 10:14)
DX: I21.09 ST elevation (STEMI) myocardial infarction involving other coronary artery of anterior wall (principal); E66.9 Obesity, unspecified; I25.5 Ischemic cardiomyopathy; R11.0 Nausea; I51.7 Cardiomegaly; Z68.33 Body mass index [BMI] 33.0-33.9, adult; Z71.3 Dietary counseling and surveillance; Z80.9 Family history of malignant neoplasm, unspecified; V18.4XXA Pedal cycle driver injured in noncollision transport accident in traffic accident, initial encounter; Y93.55 Activity, bike riding
CPT/HCPCS: 71045; 74019; 80048; 80061; 82565; 83036; 84443; 84484; 84520; 85025; 85610; 93005; 93306; 93458; 96372; 96374; 96375; 99285; C1874

== ENCOUNTER 2019-04-16 12:45 | Inpatient (IN) | payer OTHER ==
[2019-04-16] MEDS ORDERED: SODIUM CHLORIDE 0.9% 1,000 ML IV STA (13:05)
--- NOTE | 2019-04-16 13:09 | ED ---
General Adult HPI - General Stated complaint: Dizziness Time Seen by Provider: 04/16/19 12:48 Source: patient, EMS, RN notes reviewed Mode of arrival: EMS Limitations: no limitations - History of Present Illness Initial comments: Patient is a pleasant 59-year-old male presenting to the emergency department following a near syncopal episode. Patient did have stent placement done just 6 days ago here. Patient states at breakfast this morning he started feeling light headed and came diaphoretic. Patient states symptoms lasted less than 5 minutes and have resolved. Patient is symptom-free. Patient denies ever having chest discomfort. Patient denies dyspnea. No weakness or confusion. No nausea vomiting. - Related Data Previous Rx's Medication Instructions Recorded Aspirin EC [Ecotrin Low Dose] 81 mg PO DAILY #30 tablet.dr 04/13/19 Atorvastatin [Lipitor] 80 mg PO HS #30 tab 04/13/19 Clopidogrel Bisulfate [Plavix] 75 mg PO DAILY #30 tab 04/13/19 Lisinopril [Zestril] 2.5 mg PO BID #60 tab 04/13/19 Metoprolol Tartrate [Lopressor] 25 mg PO BID #60 tab 04/13/19 Nitroglycerin Sl Tabs [Nitrostat] 0.4 mg SUBLINGUAL Q5M PRN #100 tab 04/13/19 Spironolactone [Aldactone] 25 mg PO DAILY #30 tab 04/13/19 Allergies Allergy/AdvReac Type Severity Reaction Status Date / Time No Known Allergies Allergy Verified 04/16/19 13:07 Review of Systems ROS Statement: Those systems with pertinent positive or pertinent negative responses have been documented in the HPI. ROS Other: All systems not noted in ROS Statement are negative. Constitutional: Denies: fever Eyes: Denies: eye pain ENT: Denies: ear pain Respiratory: Denies: dyspnea Cardiovascular: Denies: chest pain Endocrine: Denies: fatigue Gastrointestinal: Denies: abdominal pain Genitourinary: Denies: dysuria Musculoskeletal: Denies: back pain Skin: Denies: rash Neurological: Denies: weakness Past Medical History Past Medical History: No Reported History History of Any Multi-Drug Resistant Organisms: None Reported Past Surgical History: No Surgical Hx Reported Past Anesthesia/Blood Transfusion Reactions: No Reported Reaction Past Psychological History: No Psychological Hx Reported Smoking Status: Never smoker Past Alcohol Use History: Rare Past Drug Use History: None Reported - Past Family History Father Family Medical History: Cancer General Exam Limitations: no limitations General appearance: alert, in no apparent distress Head exam: Present: normocephalic Eye exam: Present: normal appearance, PERRL, EOMI. Absent: nystagmus ENT exam: Present: normal oropharynx Neck exam: Present: normal inspection Respiratory exam: Present: normal lung sounds bilaterally. Absent: chest wall tenderness Cardiovascular Exam: Present: regular rate, normal rhythm Expanded Peripheral pulses: 2+: Radial (R), Radial (L), Dorsalis Pedis (R), Dorsalis Pedis (L) GI/Abdominal exam: Present: soft. Absent: tenderness Extremities exam: Present: normal inspection. Absent: pedal edema, calf tenderness Neurological exam: Present: alert, oriented X3, CN II-XII intact. Absent: motor sensory deficit Expanded Neurological exam: Present: protecting the airway Speech: Present: fluid speech Cranial nerves: EOM's Intact: Normal Motor strength exam: RUE: 5, LUE: 5, RLE: 5, LLE: 5 Eye Response: (4) open spontaneously Motor Response: (6) obeys commands Verbal Response: (5) oriented Psychiatric exam: Present: normal affect, normal mood Skin exam: Present: normal color Course Vital Signs 04/16/19 04/16/19 04/16/19 12:53 13:00 13:06 Pulse Rate 58 L 56 L Respiratory 18 Rate Blood Pressure 123/93 123/93 O2 Sat by Pulse 93 L 99 99 Oximetry 04/16/19 13:30 Pulse Rate 65 Respiratory Rate Blood Pressure 109/78 O2 Sat by Pulse 99 Oximetry EKG Findings - EKG Comments: EKG Findings:: Sinus bradycardia 59. For screening AV block with a MT of 208. QRS 96. QT 416. QTC 411. Left axis. LVH criteria. Septal Q waves with repolarization changes. Reviewed EKG from 04/11/2019. Medical Decision Making - Medical Decision Making Patient reevaluated and resting comfortably in bed. Patient and family updated on results and plan. Case discussed in detail with Dr. Moran, who will admit his patient. - Lab Data Result diagrams: 04/16/19 13:05 04/16/19 13:05 Lab Results 09/29/19 09/29/19 09/29/19 Range/Units 13:05 13:05 13:05 WBC 8.4 (3.8-10.6) k/uL RBC 5.46 (4.30-5.90) m/uL Hgb 16.4 (13.0-17.5) gm/dL Hct 45.9 (39.0-53.0) % MCV 84.2 (80.0-100.0) fL MCH 30.1 (25.0-35.0) pg MCHC 35.7 (31.0-37.0) g/dL RDW 13.0 (11.5-15.5) % Plt Count 261 (150-450) k/uL Neutrophils % 67 % Lymphocytes % 21 % Monocytes % 6 % Eosinophils % 3 % Basophils % 1 % Neutrophils # 5.6 (1.3-7.7) k/uL Lymphocytes # 1.8 (1.0-4.8) k/uL Monocytes # 0.5 (0-1.0) k/uL Eosinophils # 0.3 (0-0.7) k/uL Basophils # 0.1 (0-0.2) k/uL PT (9.0-12.0) sec INR (<1.2) APTT (22.0-30.0) sec Sodium 138 (137-145) mmol/L Potassium 4.8 (3.5-5.1) mmol/L Chloride 101 (98-107) mmol/L Carbon Dioxide 24 (22-30) mmol/L Anion Gap 13 mmol/L BUN 20 (9-20) mg/dL Creatinine 1.17 (0.66-1.25) mg/dL Est GFR (CKD-EPI)AfAm 77 (>60 ml/min/1.73 sqM) Est GFR (CKD-EPI)NonAf 67 (>60 ml/min/1.73 sqM) Glucose 124 H (74-99) mg/dL Calcium 9.6 (8.4-10.2) mg/dL Magnesium 2.5 H (1.6-2.3) mg/dL Total Bilirubin 1.2 (0.2-1.3) mg/dL AST 36 (17-59) U/L ALT 33 (21-72) U/L Alkaline Phosphatase 65 (38-126) U/L Troponin I 4.900 H* (0.000-0.034) ng/mL Total Protein 7.7 (6.3-8.2) g/dL Albumin 4.5 (3.5-5.0) g/dL 04/16/19 Range/Units 14:35 WBC (3.8-10.6) k/uL RBC (4.30-5.90) m/uL Hgb (13.0-17.5) gm/dL Hct (39.0-53.0) % MCV (80.0-100.0) fL MCH (25.0-35.0) pg MCHC (31.0-37.0) g/dL RDW (11.5-15.5) % Plt Count (150-450) k/uL Neutrophils % % Lymphocytes % % Monocytes % % Eosinophils % % Basophils % % Neutrophils # (1.3-7.7) k/uL Lymphocytes # (1.0-4.8) k/uL Monocytes # (0-1.0) k/uL Eosinophils # (0-0.7) k/uL Basophils # (0-0.2) k/uL PT 11.3 (9.0-12.0) sec INR 1.1 (<1.2) APTT 24.0 (22.0-30.0) sec Sodium (137-145) mmol/L Potassium (3.5-5.1) mmol/L Chloride (98-107) mmol/L Carbon Dioxide (22-30) mmol/L Anion Gap mmol/L BUN (9-20) mg/dL Creatinine (0.66-1.25) mg/dL Est GFR (CKD-EPI)AfAm (>60 ml/min/1.73 sqM) Est GFR (CKD-EPI)NonAf (>60 ml/min/1.73 sqM) Glucose (74-99) mg/dL Calcium (8.4-10.2) mg/dL Magnesium (1.6-2.3) mg/dL Total Bilirubin (0.2-1.3) mg/dL AST (17-59) U/L ALT (21-72) U/L Alkaline Phosphatase (38-126) U/L Troponin I (0.000-0.034) ng/mL Total Protein (6.3-8.2) g/dL Albumin (3.5-5.0) g/dL - Radiology Data Radiology results: image reviewed (Chest x-ray shows no acute process) Disposition Clinical Impression: Near syncope Disposition: ADMITTED IP TO THIS HOSP Is patient prescribed a controlled substance at d/c from ED?: No Referrals: Suhas Howell MD [Primary Care Provider] - 1-2 days Decision Time: 15:34
[2019-04-16 13:27] LABS: Basophils # (A) 0.1 k/uL (0-0.2); Basophils % (A) 1 %; Eosinophils # (A) 0.3 k/uL (0-0.7); Eosinophils % (A) 3 %; HCT 45.9 % (39.0-53.0); HGB 16.4 gm/dL (13.0-17.5); Lymphocytes # (A) 1.8 k/uL (1.0-4.8); Lymphocytes % (A) 21 %; MCH 30.1 pg (25.0-35.0); MCHC 35.7 g/dL (31.0-37.0); MCV 84.2 fL (80.0-100.0); Monocytes # (A) 0.5 k/uL (0-1.0); Monocytes % (A) 6 %; Neutrophils # (A) 5.6 k/uL (1.3-7.7); Neutrophils % (A) 67 %; Platelet Count 261 k/uL (150-450); RBC 5.46 m/uL (4.30-5.90); WBC 8.4 k/uL (3.8-10.6)
[2019-04-16 13:36] LABS: Albumin 4.5 g/dL (3.5-5.0); Calcium 9.6 mg/dL (8.4-10.2); Magnesium 2.5 mg/dL (1.6-2.3); Potassium 4.8 mmol/L (3.5-5.1); Total Bilirubin 1.2 mg/dL (0.2-1.3); Total Protein 7.7 g/dL (6.3-8.2)
--- NOTE | 2019-04-16 14:30 | XR ---
EXAMINATION TYPE: XR chest 2V DATE OF EXAM: 04/16/2019 COMPARISON: NONE TECHNIQUE: PA and lateral views submitted. HISTORY: Syncope FINDINGS: The lungs are clear and there is no pneumothorax, pleural effusion, or focal pneumonia. No overt fa ilure. Hypertrophic change of the spine. IMPRESSION: 1. No acute process.
[2019-04-16 14:57] LABS: INR 1.1 (<1.2); Prothrombin Time 11.3 sec (9.0-12.0)
[2019-04-16] MEDS ORDERED: NITROGLYCERIN SL TABS 0.4 MG TAB SUBLINGUAL PRN ×2 (15:34→17:23)
--- NOTE | 2019-04-16 17:18 | CT ---
EXAMINATION TYPE: CT brain wo con DATE OF EXAM: 04/16/2019 COMPARISON: None HISTORY: Pt had near syncope event today. Post NV from last week, [address] DLP: 1143.4 mGycm Automated exposure control for dose reduction was used. FINDINGS: Ventricles and sulci appear normal. There is no mass effect nor midline shift. There is no sign of in tracranial hemorrhage. The calvarium is intact. There is little pneumatization of the right mastoid s inus. IMPRESSION: NEGATIVE CT SCAN OF THE BRAIN. RIGHT SIDE CHRONIC MASTOIDITIS.
[2019-04-16 20:06] LABS: Appearance,Urine Clear (Clear); Bilirubin,Urine Negative (Negative); Blood,Urine Negative (Negative); Color,Urine Yellow; Glucose,Urine (UA) Negative (Negative); Ketones,Urine Negative (Negative); Leukocyte Esterase,Urine Negative (Negative); Nitrite,Urine Negative (Negative); Protein,Urine Negative (Negative); Specific Gravity,Urine 1.016 (1.001-1.035); Urobilinogen,Urine <2.0 mg/dL (<2.0)
[2019-04-16] MEDS: METOPROLOL TARTRATE 25 MG TAB PO SCH (20:12)
[2019-04-16] MEDS: LISINOPRIL 2.5 MG TAB PO SCH (20:12)
[2019-04-16] MEDS: ATORVASTATIN 80 MG TAB PO SCH (20:12)
[2019-04-17 06:09] LABS: Cholesterol 116 mg/dL (<200); HDL Cholesterol 23 mg/dL (40-60); LDL Cholesterol,Calculated 78 mg/dL (0-99); Triglycerides 75 mg/dL (<150)
[2019-04-17] MEDS ORDERED: ASPIRIN 325 MG TAB PO SCH (09:00)
[2019-04-17] MEDS: CLOPIDOGREL 75 MG TAB PO SCH (09:03)
[2019-04-17] MEDS: ASPIRIN 81 MG PO SCH (09:03)
[2019-04-17] MEDS: METOPROLOL TARTRATE 25 MG TAB PO SCH (09:03)
[2019-04-17] MEDS: LISINOPRIL 2.5 MG TAB PO SCH ×2 (09:03→22:11)
[2019-04-17] MEDS: SPIRONOLACTONE 25 MG TAB PO SCH (09:03)
--- NOTE | 2019-04-17 13:09 | P.CRDCN ---
History of Present Illness Consult date: 04/17/19 Requesting physician: Suhas Howell Consult reason: sycope Chief complaint: Lightheadedness, diaphoresis History of present illness: This is a pleasant 59-year-old gentleman with history of coronary artery disease who recently presented to the hospital with an acute ST elevation anterior wall [place] on April 10, he was taken emergently to the cardiac catheterization lab by Dr. Anders and was found to have a totally occluded proximal LAD for which the patient underwent angioplasty and stent placement by Dr. Carranza. Patient was also found to have moderate disease in the left main and the ostium of the circumflex. He had an echocardiogram with Doppler study performed the subsequent day which showed an ejection fraction of 35-40%. Patient was discharged home in stable condition. He read presented back to the hospital on this occasion with a near syncopal episode. According to the patient he was at the [employer], became quite lightheaded and dizzy, and extremely diaphoretic. He denies having any chest discomfort at that time. Symptoms lasted 5-10 minutes in duration. EMS blood pressure on EMS arrival 134/70 with a heart rate in the 60s, 99% on room air. It does not appear that they checked his blood sugars at that time. His EKG on presentation here showed a sinus bradycardia with ST elevation noted in the anterior leads, ST elevation appears to be improved from his recent admission. Chest x-ray did not reveal any acute process. CAT scan of the brain negative. Blood pressure 105/60 with a heart rate in the 50s, 98% on room air. White blood cell count 8.4, hemoglobin 16.4, platelet count 261. Sodium 138, potassium 5.1, BUN 20 and creatinine 1.1. Troponins 4.9, 3.6, 4.1. Troponin level on April 11 was down to 78.5. At the time of my examination this morning, patient denies any dizziness or diaphoresis, no chest discomfort, no breathing difficulty. There have been no ventricular arrhythmias noted on his monitor. Past Medical History Past Medical History: Myocardial Infarction (SD) Last Myocardial Infarction Date:: 03/2019 History of Any Multi-Drug Resistant Organisms: None Reported Past Surgical History: Heart Catheterization With Stent Additional Past Surgical History / Comment(s): stents x 2 Past Anesthesia/Blood Transfusion Reactions: No Reported Reaction Date of Last Stent Placement:: 03/2019 Past Psychological History: No Psychological Hx Reported Smoking Status: Never smoker Past Alcohol Use History: Rare Past Drug Use History: None Reported - Past Family History Father Family Medical History: Cancer Medications and Allergies Home Medications Medication Instructions Recorded Confirmed Type Aspirin EC [Ecotrin Low Dose] 81 mg PO DAILY #30 tablet. 04/13/19 04/16/19 Rx Atorvastatin [Lipitor] 80 mg PO HS #30 tab 04/13/19 04/16/19 Rx Clopidogrel Bisulfate [Plavix] 75 mg PO DAILY #30 tab 04/13/19 04/16/19 Rx Lisinopril [Zestril] 2.5 mg PO BID #60 tab 04/13/19 04/16/19 Rx Metoprolol Tartrate [Lopressor] 25 mg PO BID #60 tab 04/13/19 04/16/19 Rx Nitroglycerin Sl Tabs [Nitrostat] 0.4 mg SUBLINGUAL Q5M PRN #100 tab 04/13/19 04/16/19 Rx Spironolactone [Aldactone] 25 mg PO DAILY #30 tab 04/13/19 04/16/19 Rx Allergies Allergy/AdvReac Type Severity Reaction Status Date / Time No Known Allergies Allergy Verified 04/16/19 13:07 Physical Exam Vitals: Vital Signs Temp Pulse Pulse Resp BP BP BP 04/17/19 11:27 54 L 04/17/19 11:20 54 L 16 105/67 04/17/19 08:00 98.2 F 59 L 16 115/57 04/17/19 04:00 98.7 F 62 16 108/66 04/16/19 23:25 60 16 114/66 04/16/19 20:00 98.2 F 66 16 129/80 04/16/19 18:05 97.6 F 72 18 129/70 04/16/19 17:00 109/72 04/16/19 16:30 68 110/75 04/16/19 16:00 70 131/82 04/16/19 15:30 65 04/16/19 15:00 62 131/102 04/16/19 14:30 59 L 131/102 04/16/19 14:00 65 124/84 04/16/19 13:30 65 109/78 04/16/19 13:06 56 L 18 123/93 09/29/19 13:00 58 L 123/93 Pulse Ox 04/17/19 11:27 04/17/19 11:20 98 04/17/19 08:00 98 04/17/19 04:00 96 04/16/19 23:25 98 04/16/19 20:00 96 04/16/19 18:05 98 04/16/19 17:00 04/16/19 16:30 99 04/16/19 16:00 04/16/19 15:30 04/16/19 15:00 04/16/19 14:30 99 04/16/19 14:00 98 04/16/19 13:30 99 04/16/19 13:06 99 04/16/19 13:00 99 Intake and Output 04/16/19 04/17/19 04/17/19 22:59 06:59 14:59 Intake Total 325 Output Total 200 Balance 125 Intake: Oral 325 Output: Urine 200 Other: # Voids 1 1 Weight 91.3 kg PHYSICAL EXAMINATION: GENERAL: 59-year-old gentleman in no acute distress at the time of my examination HEENT: Head is atraumatic, normocephalic. Pupils equal, round. Sclera anicteric. Conjunctiva are clear. Mucous membranes of the mouth are moist. Neck is supple. There is no elevated jugular venous pressure. No carotid bruit is heard. HEART EXAMINATION: Heart S1, S2 normal. No murmur or gallop heard. CHEST EXAMINATION: Lungs are clear to auscultation and precussion. No chest wall tenderness is noted on palpation or with deep breathing. ABDOMEN: Soft, nontender. Bowel sounds are heard. No organomegaly noted. EXTREMITIES: 2+ peripheral pulses with no evidence of peripheral edema and no calf tenderness noted. NEUROLOGIC patient is awake, alert and oriented 3 . Results 04/16/19 13:05 04/16/19 13:05 Cardiac Enzymes 04/16/19 04/16/19 04/16/19 Range/Units 13:05 13:05 19:06 AST 36 (17-59) U/L Troponin I 4.900 H* 3.610 H* (0.000-0.034) ng/mL 04/17/19 Range/Units 01:02 AST (17-59) U/L Troponin I 4.180 H* (0.000-0.034) ng/mL Coagulation 04/16/19 Range/Units 14:35 PT 11.3 (9.0-12.0) sec APTT 24.0 (22.0-30.0) sec Lipids 04/17/19 Range/Units 05:36 Triglycerides 75 (<150) mg/dL Cholesterol 116 (<200) mg/dL HDL Cholesterol 23 L (40-60) mg/dL CBC 04/16/19 Range/Units 13:05 WBC 8.4 (3.8-10.6) k/uL RBC 5.46 (4.30-5.90) m/uL Hgb 16.4 (13.0-17.5) gm/dL Hct 45.9 (39.0-53.0) % Plt Count 261 (150-450) k/uL Comprehensive Metabolic Panel 04/16/19 Range/Units 13:05 Sodium 138 (137-145) mmol/L Potassium 4.8 (3.5-5.1) mmol/L Chloride 101 (98-107) mmol/L Carbon Dioxide 24 (22-30) mmol/L BUN 20 (9-20) mg/dL Creatinine 1.17 (0.66-1.25) mg/dL Glucose 124 H (74-99) mg/dL Calcium 9.6 (8.4-10.2) mg/dL AST 36 (17-59) U/L ALT 33 (21-72) U/L Alkaline Phosphatase 65 (38-126) U/L Total Protein 7.7 (6.3-8.2) g/dL Albumin 4.5 (3.5-5.0) g/dL Current Medications Generic Name Dose Route Start Last Admin Trade Name Freq PRN Reason Stop Dose Admin Aspirin 81 mg 04/17/19 09:00 04/17/19 09:03 Aspirin PO 81 mg DAILY JED Administration Atorvastatin Calcium 80 mg 04/16/19 21:00 04/16/19 20:12 Lipitor PO 80 mg HS JED Administration Clopidogrel Bisulfate 75 mg 04/17/19 09:00 04/17/19 09:03 Plavix PO 75 mg DAILY JED Administration Lisinopril 2.5 mg 04/16/19 21:00 04/17/19 09:03 Zestril PO 2.5 mg BID JED Administration Metoprolol Tartrate 25 mg 04/16/19 21:00 04/17/19 09:03 Lopressor PO 25 mg BID JED Administration Nitroglycerin 0.4 mg 04/16/19 17:23 Nitrostat SUBLINGUAL Q5M PRN Chest Pain Sodium Chloride 10 ml 04/16/19 21:00 04/17/19 09:03 Saline Flush IV 10 ml BID JED Administration Spironolactone 25 mg 04/17/19 09:00 04/17/19 09:03 Aldactone PO 25 mg DAILY JED Administration Intake and Output 04/16/19 04/17/19 04/17/19 22:59 06:59 14:59 Intake Total 325 Output Total 200 Balance 125 Intake: Oral 325 Output: Urine 200 Other: # Voids 1 1 Weight 91.3 kg 04/16/19 13:05 04/16/19 13:05 EKG Interpretations (text) EKG shows normal sinus rhythm with anterior ST elevation, T wave inversion in lateral leads Assessment and Plan Plan: Assessment and plan #1 dizziness and lightheadedness with associated diaphoresis and near syncope. Rule out cardiac causes, assess for any ventricular arrhythmias as the patient has ischemic cardio myopathy with documented ejection fraction of 35% #[address] elevation myocardial infarction with stenting of the LAD, patient was also found to have moderate left main disease and ostial disease of the circumflex with moderate disease in the diagonal. #3 troponin abnormality, 4.9, 3.6, 4.1. Troponin on April 11.5. #4 ischemic cardio myopathy with documented ejection fraction of 35-40% #5 hyperlipidemia Plan We will obtain a fourth of troponin, to see if the patient's trend continues to go upward. We will also continue to monitor for any ventricular arrhythmias, as the patient has a documented ischemic cardiomyopathy with an ejection fraction of 35-40%. Repeat EKG. Continue aspirin, Plavix, Lipitor, lisinopril, metop rolol, and Aldactone. Further recommendations to follow. DNP note has been reviewed, I agree with a documented findings and plan of care. Patient was seen and examined.
[2019-04-17] MEDS: METOPROLOL TARTRATE 12.5 MG TAB PO SCH (22:11)
[2019-04-17] MEDS: ATORVASTATIN 80 MG TAB PO SCH (22:12)
--- NOTE | 2019-04-18 07:53 | HP ---
HISTORY AND PHYSICAL DATE OF SERVICE: 04/17/2019 A 59-year-old white male with elevated ST and [place] in April 10, 2019, was found to have a proximal LAD and angioplasty and stenting, apparently was at home. He had a echo showed 35% to 40% ejection fraction. He was at a restaurant, got lightheaded dizzy at [employer] and his blood pressure, he became near syncope and was brought to the hospital with ST elevation in the anterior leads, was improved since this is from his last admission. CAT scan of the brain was negative. His blood pressure and vital signs appeared stable. Possibly had some orthostatic hypotension, no arrhythmias. PAST MEDICAL HISTORY: Myocardial infarction, heart catheterization with stents. HOME MEDICINES: 1. Lipitor. 2. Aspirin. 3. Plavix. 4. Zestril. 5. Lopressor. 6. Nitrostat. 7. Aldactone. ALLERGIES: Negative. Temp 98.2, pulse 50s, respiratory 16-18, blood pressure 105 to 115/50s to 60s. No acute distress. HEENT: Normocephalic, atraumatic. HEART: S1, S2. LUNGS: Clear. No chest wall tenderness. ABDOMEN: Soft, nontender. EXTREMITIES: No cyanosis, clubbing, edema. NEUROLOGIC: Alert and orient x3. Labs reviewed, appeared normal. Troponin 4.9 up from 3.6. The creatinine is normal. ASSESSMENT: Dizziness, lightheadedness, near syncope, possible ischemic cardiomyopathy with hypotension, recent myocardial infarction, recent stenting of the LAD, elevated troponins, which coming down from prior admission, ischemic cardiomyopathy, dyslipidemia for sedative, troponins. Await Cardiology recommendations. Start home medications. Check orthostatic hypotension. MMODL / IJN: [id number] /
[2019-04-18] MEDS: ASPIRIN 81 MG PO SCH (08:57)
[2019-04-18] MEDS: CLOPIDOGREL 75 MG TAB PO SCH (08:57)
[2019-04-18] MEDS: SPIRONOLACTONE 25 MG TAB PO SCH (08:58)
[2019-04-18] MEDS: LISINOPRIL 2.5 MG TAB PO SCH ×2 (08:58→19:38)
[2019-04-18] MEDS: METOPROLOL TARTRATE 12.5 MG TAB PO SCH ×2 (08:58→19:38)
--- NOTE | 2019-04-18 13:35 | ECHOF ---
Referral Reason:syncope MEASUREMENTS -------- HEIGHT: 170.2 cm WEIGHT: 90.7 kg BP: 113/64 IVSd: 1.5 cm (0.6 - 1.1) LVIDd: 4.2 cm (3.9 - 5.3) LVPWd: 1.5 cm (0.6 - 1.1) IVSs: 1.9 cm LVIDs: 3.2 cm LVPWs: 1.7 cm IVSd: 1.4 cm (0.6 - 1.1) LVIDd: 5.8 cm (3.9 - 5.3) LVPWd: 1.7 cm (0.6 - 1.1) IVSs: 1.6 cm LVIDs: 5.1 cm LVPWs: 2.8 cm EDV(Teich): 167 ml ESV(Teich): 122 ml EF(Teich): 27 % %FS: 13 % SV(Teich): 45 ml FINDINGS -------- Sinus rhythm. This was a technically adequate study. Limited Study There is moderate concentric left ventricular hypertrophy. Overall left ventricular systolic functi on is moderately impaired with, an EF between 35 - 40 %. Apical lateral LV wall motion is hypokinet ic. Apical septum LV wall motion is hypokinetic. 5.0mg of Lumason was utilized for enhancement of images There is no pericardial effusion. CONCLUSIONS -------- 1. Sinus rhythm. 2. This was a technically adequate study. 3. Limited Study 4. There is moderate concentric left ventricular hypertrophy. 5. Apical lateral LV wall motion is hypokinetic. 6. Apical septum LV wall motion is hypokinetic. 7. 5.0mg of Lumason was utilized for enhancement of images 8. There is no pericardial effusion. BINGO USHER: Michelle Hanna RDCS
--- NOTE | 2019-04-18 14:01 | P.PN ---
Subjective Progress Note Date: 04/18/19 This is a pleasant 59-year-old gentleman with history of coronary artery disease who recently presented to the hospital with an acute ST elevation anterior wall [place] on April 10, he was taken emergently to the cardiac catheterization lab by Dr. Anders and was found to have a totally occluded proximal LAD for which the patient underwent angioplasty and stent placement by Dr. Carranza. Patient was also found to have moderate disease in the left main and the ostium of the circumflex. He had an echocardiogram with Doppler study performed the subsequent day which showed an ejection fraction of 35-40%. Patient was discharged home in stable condition. He read presented back to the hospital on this occasion with a near syncopal episode. According to the patient he was at the [employer], became quite lightheaded and dizzy, and extremely diaphoretic. He denies having any chest discomfort at that time. Symptoms lasted 5-10 minutes in duration. EMS blood pressure on EMS arrival 134/70 with a heart rate in the 60s, 99% on room air. It does not appear that they checked his blood sugars at that time. His EKG on presentation here showed a sinus bradycardia with ST elevation noted in the anterior leads, ST elevation appears to be improved from his recent admission. Chest x-ray did not reveal any acute process. CAT scan of the brain negative. Blood pressure 105/60 with a heart rate in the 50s, 98% on room air. White blood cell count 8.4, hemoglobin 16.4, platelet count 261. Sodium 138, potassium 5.1, BUN 20 and creatinine 1.1. Troponins 4.9, 3.6, 4.1. Troponin level on April 11 was down to 78.5. At the time of my examination this morning, patient denies any dizziness or diaphoresis, no chest discomfort, no breathing difficulty. There have been no ventricular arrhythmias noted on his monitor. 04/18/2019 Patient seen and examined this morning, denies any chest pain, no dizziness or lightheadedness. No significant arrhythmias noted on the monitor. A repeat echocardiogram with Doppler study was performed ejection fraction continues to be in the range of 35%. Patient has been advised regarding the LifeVest, for prevention of sudden cardiac this will be ordered today, if it arises today the patient may be able to be discharged home and follow-up with Dr. Anders in the office as scheduled. Objective - Vital Signs Vital signs: Vital Signs Temp 98.5 F 04/18/19 08:00 Pulse 59 L 04/18/19 11:49 Resp 16 04/18/19 11:43 BP 109/59 04/18/19 11:43 Pulse Ox 100 04/18/19 11:43 Intake & Output 04/17/19 04/18/19 04/18/19 18:59 06:59 18:59 Intake Total 469 480 Output Total 600 Balance -131 480 Intake: Oral 469 480 Output: Urine 600 Other: # Voids 1 2 1 - Exam PHYSICAL EXAMINATION: GENERAL: 59-year-old gentleman in no acute distress at the time of my examination HEENT: Head is atraumatic, normocephalic. Pupils equal, round. Sclera anicteric. Conjunctiva are clear. Mucous membranes of the mouth are moist. Neck is supple. There is no elevated jugular venous pressure. No carotid bruit is heard. HEART EXAMINATION: Heart S1, S2 normal. No murmur or gallop heard. CHEST EXAMINATION: Lungs are clear to auscultation and precussion. No chest wall tenderness is noted on palpation or with deep breathing. ABDOMEN: Soft, nontender. Bowel sounds are heard. No organomegaly noted. EXTREMITIES: 2+ peripheral pulses with no evidence of peripheral edema and no calf tenderness noted. NEUROLOGIC patient is awake, alert and oriented 3 - Labs CBC & Chem 7: 04/16/19 13:05 04/16/19 13:05 Labs: Abnormal Lab Results - Last 24 Hours (Table) 04/17/19 Range/Units 13:17 Troponin I 3.370 H* (0.000-0.034) ng/mL Assessment and Plan Plan: Assessment and plan #1 dizziness and lightheadedness with associated diaphoresis and near syncope. Rule out cardiac causes, assess for any ventricular arrhythmias as the patient has ischemic cardio myopathy with documented ejection fraction of 35% #[address] elevation myocardial infarction with stenting of the LAD, patient was also found to have moderate left main disease and ostial disease of the circumflex with moderate disease in the diagonal. #3 troponin abnormality, 4.9, 3.6, 4.1. Troponin on April 11 , 78.5. #4 ischemic cardio myopathy with documented ejection fraction of 35-40% #5 hyperlipidemia Plan Repeat echocardiogram with Doppler study shows an ejection fraction of 35%. Patient has been advised to be placed with a LifeVest for prevention of sudden cardiac . A repeat echo will be performed in 3 months, if his ejection fraction remains poor he will require a defibrillator at that time, if his LV function has improved the LifeVest will be removed at that time. This is all been explained to the patient and his sister in detail. DNP note has been reviewed, I agree with a documented findings and plan of care. Patient was seen and examined.
[2019-04-18] MEDS: ATORVASTATIN 80 MG TAB PO SCH (19:38)
--- NOTE | 2019-04-18 21:41 | PN ---
PROGRESS NOTE SUBJECTIVE: White male. Possible orthostatic hypotension, near-syncope. Coronary artery disease. Having no chest pain or shortness of breath. Feels much better. Wait for Cardiology to clear him for discharge. VITAL SIGNS: Stable. Afebrile. CARDIOVASCULAR: S1, S2. LUNGS: Clear. GI: Soft. ASSESSMENT: 1. Near-syncope. 2. Coronary artery disease. 3. Suspect orthostatic hypotension. Continue current treatment. Wait for clearance from Cardiology prior to discharge. MMODL / IJN: [id number] /
[2019-04-19] MEDS: METOPROLOL TARTRATE 12.5 MG TAB PO SCH (08:00)
[2019-04-19] MEDS: LISINOPRIL 2.5 MG TAB PO SCH (08:00)
[2019-04-19] MEDS: SPIRONOLACTONE 25 MG TAB PO SCH (08:01)
[2019-04-19] MEDS: CLOPIDOGREL 75 MG TAB PO SCH (08:01)
[2019-04-19] MEDS: ASPIRIN 81 MG PO SCH (08:01)
[2019-04-19 08:06] VITALS: TEMP 98.5
--- NOTE | 2019-04-19 10:38 | P.PN ---
Subjective Progress Note Date: 04/19/19 This is a pleasant 59-year-old gentleman with history of coronary artery disease who recently presented to the hospital with an acute ST elevation anterior wall PR on April 10, he was taken emergently to the cardiac catheterization lab by Dr. Anders and was found to have a totally occluded proximal LAD for which the patient underwent angioplasty and stent placement by Dr. Carranza. Patient was also found to have moderate disease in the left main and the ostium of the circumflex. He had an echocardiogram with Doppler study performed the subsequent day which showed an ejection fraction of 35-40%. Patient was discharged home in stable condition. He read presented back to the hospital on this occasion with a near syncopal episode. According to the patient he was at the [employer], became quite lightheaded and dizzy, and extremely diaphoretic. He denies having any chest discomfort at that time. Symptoms lasted 5-10 minutes in duration. EMS blood pressure on EMS arrival 134/70 with a heart rate in the 60s, 99% on room air. It does not appear that they checked his blood sugars at that time. His EKG on presentation here showed a sinus bradycardia with ST elevation noted in the anterior leads, ST elevation appears to be improved from his recent admission. Chest x-ray did not reveal any acute process. CAT scan of the brain negative. Blood pressure 105/60 with a heart rate in the 50s, 98% on room air. White blood cell count 8.4, hemoglobin 16.4, platelet count 261. Sodium 138, potassium 5.1, BUN 20 and creatinine 1.1. Troponins 4.9, 3.6, 4.1. Troponin level on April 11 was down to 78.5. At the time of my examination this morning, patient denies any dizziness or diaphoresis, no chest discomfort, no breathing difficulty. There have been no ventricular arrhythmias noted on his monitor. 04/18/2019 Patient seen and examined this morning, denies any chest pain, no dizziness or lightheadedness. No significant arrhythmias noted on the monitor. A repeat echocardiogram with Doppler study was performed ejection fraction continues to be in the range of 35%. Patient has been advised regarding the LifeVest, for prevention of sudden cardiac this will be ordered today, if it arises today the patient may be able to be discharged home and follow-up with Dr. Anders in the office as scheduled. 04/19/2019 Patient seen and examined this morning, denies any chest pain, no dizziness or lightheadedness. Hemodynamically stable. Rate today for the LifeVest to arrival, patient then will be discharged home today Objective - Vital Signs Vital signs: Vital Signs Temp 98.5 F 04/19/19 08:00 Pulse 67 04/19/19 08:00 Resp 16 04/19/19 08:00 BP 126/72 04/19/19 08:00 Pulse Ox 96 04/19/19 08:00 Intake & Output 04/18/19 04/19/19 04/19/19 18:59 06:59 18:59 Intake Total 720 510 232 Balance 720 510 232 Weight 92.1 kg Intake: IV 30 10 Invasive Line 1 30 10 Oral 720 480 222 Other: Voiding Method Toilet # Voids 2 2 - Exam PHYSICAL EXAMINATION: GENERAL: 59-year-old gentleman in no acute distress at the time of my examination HEENT: Head is atraumatic, normocephalic. Pupils equal, round. Sclera anicteric. Conjunctiva are clear. Mucous membranes of the mouth are moist. Neck is supple. There is no elevated jugular venous pressure. No carotid bru it is heard. HEART EXAMINATION: Heart S1, S2 normal. No murmur or gallop heard. CHEST EXAMINATION: Lungs are clear to auscultation and precussion. No chest wall tenderness is noted on palpation or with deep breathing. ABDOMEN: Soft, nontender. Bowel sounds are heard. No organomegaly noted. EXTREMITIES: 2+ peripheral pulses with no evidence of peripheral edema and no calf tenderness noted. NEUROLOGIC patient is awake, alert and oriented 3 - Labs CBC & Chem 7: 04/16/19 13:05 04/16/19 13:05 Assessment and Plan Plan: Assessment and plan #1 dizziness and lightheadedness with associated diaphoresis and near syncope. Rule out cardiac causes, assess for any ventricular arrhythmias as the patient has ischemic cardio myopathy with documented ejection fraction of 35% #[address] elevation myocardial infarction with stenting of the LAD, patient was also found to have moderate left main disease and ostial disease of the circumflex with moderate disease in the diagonal. #3 troponin abnormality, 4.9, 3.6, 4.1. Troponin on April 11 , 78.5. #4 ischemic cardio myopathy with documented ejection fraction of 35-40% #5 hyperlipidemia Plan Repeat echocardiogram with Doppler study was reviewed by the ammonia still operator rounding in the echo lab today shows a definite ejection fraction of 35%. Patient has been advised to be placed with a LifeVest for prevention of sudden cardiac . A repeat echo will be performed in 3 months, if his ejection fraction remains poor he will require a defibrillator at that time, if his LV function has improved the LifeVest will be removed at that time. This is all been explained to the patient and his sister in detail. DNP note has been reviewed, I agree with a documented findings and plan of care. Patient was seen and examined.
[2019-04-19 12:20] VITALS: BP 131/71; PULSE 64; RESP 18
== END 2019-04-19 14:15 | disposition home health service (06) | DRG 282 ==
LOC: EC 12:45 → 3SCARD 15:35 → OBSVTOIN 04-18 10:25
PROVIDERS: ADMIT Family Medicine; ATTEND Family Medicine
DX: I95.1 Orthostatic hypotension (principal); I21.09 ST elevation (STEMI) myocardial infarction involving other coronary artery of anterior wall; E78.5 Hyperlipidemia, unspecified; I25.10 Atherosclerotic heart disease of native coronary artery without angina pectoris; I25.5 Ischemic cardiomyopathy; Z79.02 Long term (current) use of antithrombotics/antiplatelets; Z79.82 Long term (current) use of aspirin; Z79.899 Other long term (current) drug therapy; Z95.5 Presence of coronary angioplasty implant and graft
CPT/HCPCS: 36415; 70450; 71046; 80053; 80061; 81003; 83735; 84484; 85025; 85610; 85730; 93005; 93308; 99285

== ENCOUNTER → 2019-04-27 | Outpatient (CLI) | payer OTHER ==
[2019-04-27 18:07] LABS: Chol/HDL Ratio 2.53; LDL Cholesterol,Calculated 36.4 mg/dL (0.0-131.0); VLDL Calculation 12.6 mg/dL (5.00-40.00)
== END | disposition home or self-care (01) ==
LOC: LABWHC1 08:17
PROVIDERS: ATTEND Internal Medicine Cardiovascular Disease
DX: I25.10 Atherosclerotic heart disease of native coronary artery without angina pectoris (principal); E78.5 Hyperlipidemia, unspecified
CPT/HCPCS: 36415; 80061; 84450; 84460

== ENCOUNTER → 2019-06-06 | Outpatient (CLI) | payer OTHER ==
[2019-06-06 09:13] LABS: HCT 45.5 % (39.0-53.0); MCH 29.3 pg (25.0-35.0); MCV 88.9 fL (80.0-100.0); Mean Platelet Volume 6.3; Platelet Count 182 k/uL (150-450); RBC 5.12 m/uL (4.30-5.90); RDW 13.4 % (11.5-15.5); WBC 5.9 k/uL (3.8-10.6)
[2019-06-06 09:18] LABS: African American GFR (CKD) >90 (>60 ml/min/1.73 sqM); Anion Gap 9 mmol/L; Blood Urea Nitrogen 17 mg/dL (9-20); Carbon Dioxide 29 mmol/L (22-30); Chloride 104 mmol/L (98-107); Potassium 4.8 mmol/L (3.5-5.1); Sodium 142 mmol/L (137-145)
== END | disposition home or self-care (01) ==
LOC: LABPAT 08:26
PROVIDERS: ATTEND Internal Medicine Cardiovascular Disease
DX: Z01.812 Encounter for preprocedural laboratory examination (principal); I25.5 Ischemic cardiomyopathy
CPT/HCPCS: 36415; 80051; 82565; 84520; 85027

== ENCOUNTER 2019-06-09 07:18 | Day surgery (SDC) | payer OTHER ==
[~2019-06-09 07:18] MED LIST: SODIUM CHLORIDE 0.9% 1,000 ML IV SCH
[2019-06-09] MEDS ORDERED: ceFAZolin 1,000 MG in SODIUM CHLORIDE 0.9% IRRIGATIO 250 ML IRRIGATION ONE (07:45)
[2019-06-09] MEDS ORDERED: SODIUM CHLORIDE 0.9% 1,000 ML IV ONE (08:06)
[2019-06-09] MEDS ORDERED: fentaNYL (PF) 50 MCG/ML 2 ML AMP ONE (09:10)
[2019-06-09] MEDS ORDERED: MIDAZOLAM 2 MG/2 ML VIAL ONE (09:10)
[2019-06-09] MEDS ORDERED: PROPOFOL 10 MG/ML 20 ML VIAL IV ONE (09:10)
[2019-06-09] MEDS ORDERED: IOPAMIDOL-250 50ML BTL IV ONE (09:25)
[2019-06-09] MEDS ORDERED: LIDOCAINE 1% INJ 10MG/ML (20 ML MDV) SQ ONE (09:50)
[2019-06-09] MEDS ORDERED: ACETAMINOPHEN TAB 325 MG TAB PO PRN (11:04)
--- NOTE | 2019-06-09 11:18 | P.PCN ---
Date of Procedure: 06/09/19 Preoperative Diagnosis: Ischemic cardiac myopathy, history of [place] and post [place] syncope and CHF class 1-2. Postoperative Diagnosis: The same Procedure(s) Performed: Prophylactic AICD implantation Description of Procedure: HISTORY: This is a 59-year-old gentleman with history of recent admission for subacute anterior wall myocardial infarction followed by stent placement. His LV function was severely impaired with ejection fraction of 30% with severe hypokinesis of the anteroapical segments. Patient was readmitted to the hospital with post [place] syncope. He had a vest placement for a month and a repeat echocardiogram showed severely impaired LV function with an ejection fraction about 30%. Patient is advised to have prophylactic AICD implantation. Patient's CHF class is 1 to 2. CONSENT:I have discussed the risks, benefits and alternative therapies for the above-mentioned procedure and for both sedation/analgesia as well as necessary blood product administration, if indicated, as they pertain to this patient. The patient has indicated understanding and acceptance of the risks and procedures discussed. PROCEDURE: Patient was brought to the lab in a fasting state. Patient was prepped and draped in the usual fashion. Patient was given IV sedation with fentanyl and Versed. The skin below the left clavicle was infiltrated with lidocaine. An incision was made parallel to deltopectoral groove was deepened u ntil the pectoral fascia was exposed. A pocket was created by blunt dissection and cautery. Axillary venography was performed to delineate the course of the axillary vein. A single stick was performed into extrathoracic portion of the axillary vein and and a single sheath was advanced over the guidewires into the left in subclavian vein. Conscious Sedation: This is provided by department of anesthesia Duration []minutes LEADS: VENTRICULAR: This is manufactured by by [employer]. The model number is [id number] and the serial number is [id number]. The ventricular lead is maneuvered l with help of a straight and curved stylets into the left ventricle apical region. Satisfactory position was obtained and threshold measurements were made. THRESHOLDS: VENTRICLE: The minimal patient threshold was 0.4 at pulse width of 0.5 with impedance of 805 R-wave:16.1 The leads and pulse generator remained in the pocket after it was washed with antibiotics. Pocket was closed in the usual fashion. The fascia was closed with 2-0 Prolene ,the subcutaneous tissue was closed with 3-0 Prolene and the skin was closed with 4-0 Prolene. DFT testing: Patient was given deep anesthesia. Ventricular tachycardia was induced induced with T shock. V. fib was induced which was detected appropriately but the first episode of and blood fibrillation, converted to sinus rhythm spontaneously. V. fib was induced se cond time with T shock, which was appropriately detected with 1 fallout. A 15 J shock converted patient back to sinus PROGRAMMING: Bradycardia therapy: MODE: VVI RATE: 40 OUTPUT: Ventricle: 3.5 Tachycardia therapy: The VF zone was programmed to a rate of 200. The initial detection is programmed to 30/40 and the dictated is programmed to 12 out of 16. The VF therapies programmed to 356. The VT zone is programmed to a rate of 176. Therapies are programmed to burst pacing 2 followed by cardioversion 4 with 35 J. No The monitor zone is programmed to a rate of 1 50 bpm. FINAL IMPRESSION: #1. Axillary venography #2. Successful implantation of single-chamber AICD #3. DFT testing. COMPLICATIONS: None PLAN:. Continue prophylactic antibiotics. Monitor patient on the telemetry unit. Possible discharge in a.m.
[2019-06-09] MEDS ORDERED: LISINOPRIL 2.5 MG TAB PO SCH (12:15)
[2019-06-09 12:32] VITALS: BMI 30.1
[2019-06-09] MEDS: METOPROLOL TARTRATE 12.5 MG TAB PO SCH ×2 (13:32→20:28)
[2019-06-09] MEDS: SPIRONOLACTONE 25 MG TAB PO SCH (13:32)
[2019-06-09] MEDS: HYDROcodone/APAP 5-325MG 1 EACH TAB PO PRN ×2 (16:07→22:59)
[2019-06-09] MEDS: SODIUM CHLORIDE 0.9% 1,000 ML IV SCH ×2 (18:08→21:03)
[2019-06-09] MEDS: ATORVASTATIN 40 MG TAB PO SCH ×2 (20:28→20:31)
[2019-06-09] MEDS: LISINOPRIL 2.5 MG TAB PO SCH (23:12)
--- NOTE | 2019-06-10 05:55 | P.DS ---
Providers Date of admission: 05/09/2019 Attending physician: Sofia Anders Primary care physician: Suhas Howell - Discharge Diagnosis(es) (1) Status post implantation of automatic cardioverter/defibrillator (AICD) Current Visit: Yes Status: Acute (2) Ischemic cardiomyopathy Current Visit: No Status: Acute (3) Near syncope Current Visit: No Status: Acute (4) Chronic CHF Current Visit: Yes Status: Acute Hospital Course: Patient was brought in yesterday for prophylactic AICD implantation. Patient has history of [place] and ischemic cardiomyopathy with persistent LV dysfunction with ejection fraction about 30%. Patient also had post [place] syncope. Patient tolerated the procedure well. Clinically stable and vital signs are stable. His procedure site appears to be dry without any significant hematoma. Patient is tolerating activity. Patient could be discharged home later today after completion of chest x-ray, antibiotics, and also device evaluation. Follow-up in the office in one week. Patient is instructed to keep the dressing dry. Patient is advised to avoid any weight lifting, pushing, pulling, and also using the arm above shoulder level. Follow-up in the office in one week Plan - Discharge Summary Discharge Rx Participant: No New Discharge Prescriptions: New Cephalexin [Keflex] 500 mg PO Q8HR #10 cap Continue Spironolactone [Aldactone] 25 mg PO DAILY #30 tab Aspirin EC [Ecotrin Low Dose] 81 mg PO DAILY #30 tablet. Nitroglycerin Sl Tabs [Nitrostat] 0.4 mg SUBLINGUAL Q5M PRN #100 tab PRN Reason: Chest Pain Lisinopril [Zestril] 2.5 mg PO BID #60 tab Metoprolol Tartrate [Lopressor] 12.5 mg PO BID tab Atorvastatin [Lipitor] 40 mg PO HS Discontinued Clopidogrel Bisulfate [Plavix] 75 mg PO DAILY #30 tab Discharge Medication List Aspirin EC [Ecotrin Low Dose] 81 mg PO DAILY #30 tablet. 04/13/19 [Rx] Lisinopril [Zestril] 2.5 mg PO BID #60 tab 04/13/19 [Rx] Nitroglycerin Sl Tabs [Nitrostat] 0.4 mg SUBLINGUAL Q5M PRN #100 tab 04/13/19 [Rx] Spironolactone [Aldactone] 25 mg PO DAILY #30 tab 04/13/19 [Rx] Metoprolol Tartrate [Lopressor] 12.5 mg PO BID tab 04/19/19 [Rx] Atorvastatin [Lipitor] 40 mg PO HS 06/07/19 [History] Cephalexin [Keflex] 500 mg PO Q8HR #10 cap 06/10/19 [Rx] Discharge Disposition: HOME SELF-CARE
[2019-06-10 07:08] VITALS: BP 105/66; PULSE 55; RESP 18; TEMP 97.8
[2019-06-10] MEDS: LISINOPRIL 2.5 MG TAB PO SCH (07:52)
[2019-06-10] MEDS: SPIRONOLACTONE 25 MG TAB PO SCH (07:52)
[2019-06-10] MEDS: METOPROLOL TARTRATE 12.5 MG TAB PO SCH (07:52)
[2019-06-10] MEDS ORDERED: CLOPIDOGREL 75 MG TAB PO SCH (09:00)
[2019-06-10] MEDS ORDERED: ASPIRIN 81 MG PO SCH (09:00)
--- NOTE | 2019-06-10 11:32 | XR ---
EXAMINATION TYPE: XR chest 2V DATE OF EXAM: 06/10/2019 COMPARISON: NONE HISTORY: Lead placement check TECHNIQUE: Frontal and lateral views of the chest are obtained. FINDINGS/IMPRESSION: Single chamber cardiac pacemaker noted with power pack over the left chest wall . Cardiac silhouette is normal in size. No pulmonary vascular congestion. The lungs are clear. No ple ural effusion or pneumothorax.
== END 2019-06-10 12:33 | disposition home or self-care (01) ==
LOC: CATHEP 07:18 → 1SOBS 10:43 → CATHEP 06-10 12:33
PROVIDERS: ATTEND Internal Medicine Cardiovascular Disease
DX: I25.5 Ischemic cardiomyopathy (principal); I25.2 Old myocardial infarction; I25.10 Atherosclerotic heart disease of native coronary artery without angina pectoris; I11.0 Hypertensive heart disease with heart failure; I50.9 Heart failure, unspecified; Z95.5 Presence of coronary angioplasty implant and graft; E78.00 Pure hypercholesterolemia, unspecified; Z97.2 Presence of dental prosthetic device (complete) (partial); Z79.02 Long term (current) use of antithrombotics/antiplatelets; Z79.82 Long term (current) use of aspirin; Z79.899 Other long term (current) drug therapy
CPT/HCPCS: 93641; 33249; 71046; C1769 ×2; C1892; C1895; C1722; J2250; J0690 ×2; J2001; J3010; J2704; Q9966

== ENCOUNTER → 2020-03-01 | Outpatient (CLI) | payer OTHER ==
[2020-03-01 20:11] LABS: Chol/HDL Ratio 2.69
== END | disposition home or self-care (01) ==
LOC: LABWHC1 12:46
PROVIDERS: ATTEND Internal Medicine Cardiovascular Disease
DX: E78.2 Mixed hyperlipidemia (principal)
CPT/HCPCS: 36415; 80061; 82550; 84450; 84460

== ENCOUNTER 2023-04-19 11:52 | Emergency (ER) | payer MEDICARE, OTHER ==
[2023-04-19 12:27] VITALS: BP 133/81; PULSE 61; RESP 18; TEMP 97.6
[2023-04-19 12:54] LABS: Basophils % (A) 0 %; Eosinophils # (A) 0.1 k/uL (0-0.7); Eosinophils % (A) 2 %; HCT 41.3 % (39.0-53.0); HGB 14.4 gm/dL (13.0-17.5); Lymphocytes # (A) 1.1 k/uL (1.0-4.8); Lymphocytes % (A) 23 %; MCH 30.5 pg (25.0-35.0); MCHC 34.8 g/dL (31.0-37.0); MCV 87.7 fL (80.0-100.0); Monocytes # (A) 0.2 k/uL (0-1.0); Monocytes % (A) 4 %; Neutrophils # (A) 3.3 k/uL (1.3-7.7); Neutrophils % (A) 70 %; Platelet Count 146 k/uL (150-450); RBC 4.71 m/uL (4.30-5.90); RDW 12.9 % (11.5-15.5); WBC 4.7 k/uL (3.8-10.6)
[2023-04-19 13:11] LABS: ALT 21 U/L (4-49); AST 27 U/L (17-59); African American GFR (CKD) 79 (>60 ml/min/1.73 sqM); Albumin 3.9 g/dL (3.5-5.0); Alkaline Phosphatase 59 U/L (38-126); Anion Gap 6 mmol/L; Blood Urea Nitrogen 12 mg/dL (9-20); Calcium 8.8 mg/dL (8.4-10.2); Carbon Dioxide 27 mmol/L (22-30); Chloride 106 mmol/L (98-107); Glucose 102 mg/dL (74-99); Non-African American GFR(CKD) 68 (>60 ml/min/1.73 sqM); Potassium 4.4 mmol/L (3.5-5.1); Sodium 139 mmol/L (137-145); Total Bilirubin 0.6 mg/dL (0.2-1.3); Total Protein 6.6 g/dL (6.3-8.2)
[2023-04-19 13:12] LABS: Partial Thromboplastin Time 25.5 sec (22.0-30.0); Prothrombin Time 10.8 sec (9.0-12.0)
--- NOTE | 2023-04-19 13:26 | ED ---
Chest Pain HPI - General Source: patient, RN notes reviewed Mode of arrival: ambulatory Limitations: no limitations <Jordan Leon - Last Filed: 04/19/23 13:24> <Luis Cintron - Last Filed: 04/19/23 15:17> - General Chief Complaint: Chest Pain Stated Complaint: Headache, L side Time Seen by Provider: 04/19/23 13:25 - History of Present Illness Initial Comments: 63-year-old male presents emergency Department with chief complaint of chest pain. Patient states the pain is more an achiness on the lateral surface chest follicles behind his pacemaker. He states he pacemaker placed a few years ago he does not is had 2 prior cardiac stents he is currently symptom-free states that symptoms have resolved. Denies any shortness breath or dizziness. (Jordan Leon) 63-year-old male with a 2 minute episode of left-sided chest pain which began around 9 AM this morning. No associated symptoms, nonradiating, not associated with diaphoresis or vomiting. No pain since this episode. (Luis Cintron) - Related Data Home Medications Medication Instructions Recorded Confirmed Atorvastatin [Lipitor] 40 mg PO HS 06/07/19 06/09/19 Previous Rx's Medication Instructions Recorded Aspirin EC [Ecotrin Low Dose] 81 mg PO DAILY #30 tablet.dr 04/13/19 Nitroglycerin Sl Tabs [Nitrostat] 0.4 mg SUBLINGUAL Q5M PRN #100 tab 04/13/19 Spironolactone [Aldactone] 25 mg PO DAILY #30 tab 04/13/19 lisinopriL [Zestril] 2.5 mg PO BID #60 tab 04/13/19 Metoprolol Tartrate [Lopressor] 12.5 mg PO BID tab 04/19/19 Cephalexin [Keflex] 500 mg PO Q8HR #10 cap 06/10/19 Allergies Allergy/AdvReac Type Severity Reaction Status Date / Time No Known Allergies Allergy Verified 04/19/23 12:26 Review of Systems ROS Other: All systems not noted in ROS Statement are negative. <Jordan Leon - Last Filed: 04/19/23 13:24> ROS Other: All systems not noted in ROS Statement are negative. <Luis Cintron - Last Filed: 10/02/23 15:17> ROS Statement: Those systems with pertinent positive or pertinent negative responses have been documented in the HPI. Past Medical History Past Medical History: Myocardial Infarction ([place]) Last Myocardial Infarction Date:: 03/2019 History of Any Multi-Drug Resistant Organisms: None Reported Past Surgical History: Heart Catheterization With Stent Additional Past Surgical History / Comment(s): stents x 2, defibulator Past Anesthesia/Blood Transfusion Reactions: No Reported Reaction Date of Last Stent Placement:: 03/2019 Past Psychological History: No Psychological Hx Reported Smoking Status: Never smoker Past Alcohol Use History: Rare Past Drug Use History: None Reported - Past Family History Father Family Medical History: Cancer <Jordan Leon - Last Filed: 04/19/23 13:24> General Exam <Jordan Leon - Last Filed: 04/19/23 13:24> General appearance: alert, in no apparent distress Head exam: Present: atraumatic, normocephalic Eye exam: Present: normal appearance, PERRL ENT exam: Present: normal exam Neck exam: Present: normal inspection. Absent: tenderness, meningismus Respiratory exam: Present: normal lung sounds bilaterally. Absent: respiratory distress, wheezes Cardiovascular Exam: Present: regular rate, normal rhythm GI/Abdominal exam: Present: soft. Absent: distended, tenderness, guarding Extremities exam: Present: normal inspection, normal capillary refill. Absent: pedal edema, calf tenderness Neurological exam: Present: alert, oriented X3, CN II-XII intact, reflexes normal. Absent: motor sensory deficit Psychiatric exam: Present: normal affect, normal mood Skin exam: Present: warm, dry, intact <SaidaLuis Dillon - Last Filed: 04/19/23 15:17> - General Exam Comments Initial Comments: Visual Physical Exam Vital signs reviewed General: Well-appearing, nontoxic, no acute distress. Head: Normocephalic, atraumatic Eyes: PERRLA, EOMI ENT: Airway patent Chest: Nonlabored breathing Skin: No visual rash, normal skin tone Neuro: Alert and oriented 3 Musculoskeletal: No gross abnormalities (Jordan Leon) Course Vital Signs 04/19/23 12:21 Temperature 97.6 F Pulse Rate 61 Respiratory 18 Rate Blood Pressure 133/81 O2 Sat by Pulse 99 Oximetry Chest Pain MDM <Jordan Leon - Last Filed: 04/19/23 13:24> <Luis Cintron - Last Filed: 04/19/23 15:17> - MDM I performed a quick note portion of this chart signed Jordan Leon PA-C (Jordan Leon) Was pt. sent in by a medical professional or institution ([facility]ASSINE Suárez, HEALTH COACH, urgent care, hospital, or [facility]...) When possible be specific @ -No Did you speak to anyone other than the patient for history (EMS, parent, family, police, friend...)? What history was obtained from this source @ -No Did you review nursing and triage notes (agree or disagree)? Why? @ -I reviewed and agree with nursing and triage notes Were old charts reviewed (outside hosp., previous admission, EMS record, old EKG, old radiological studies, urgent care reports/EKG's, [facility] records)? Report findings @ -No old charts were reviewed Differential Diagnosis (chest pain, altered mental status, abdominal pain women, abdominal pain men, vaginal bleeding, weakness, fever, dyspnea, syncope, headache, dizziness, GI bleed, back pain, seizure, CVA, palpatations, mental health, musculoskeletal)? @ -Differential Chest Pain: Stable Angina, Unstable Angina, STEMI, NSTEMI Aortic Dissection, Pneumothorax, Musculoskeletal, Esophageal Spasm GERD, Cholecystitis, Pancreatitis, Zoster, this is not meant to be an all-inclusive list. EKG interpreted by me (3pts min.). @ -Sinus bradycardia left ventricular hypertrophy no ST segment elevation rate of 56, TN interval 206, QRS duration 98, QTC 396 X-rays interpreted by me (1pt min.). @ -Chest x-ray negative for acute cardio pulmonary findings. CT interpreted by me (1pt min.). @ -None done U/S interpreted by me (1pt. min.). @ -None done What testing was considered but not performed or refused? (CT, X-rays, U/S, labs)? Why? @ -None What meds were considered but not given or refused? Why? @ -None Did you discuss the management of the patient with other professionals (darnell knapp i.e. , YASSINE, HEALTH COACH, lab, RT, psych nurse, marriage and family social worker, shrimp trawler, teacher, media liaison officer, showcase maker)? Give summary @ -No Was smoking cessation discussed for >3mins.? @ -No Was critical care preformed (if so, how long)? @ -No Were there social determinants of health that impacted care today? How? (Homelessness, low income, unemployed, alcoholism, drug addiction, transportation, low edu. Level, literacy, decrease access to med. care, fci, rehab)? @ -No Was there de-escalation of care discussed even if they declined (Discuss DNR or withdrawal of care, Hospice)? DNR status @ -No What co-morbidities impacted this encounter? (DM, HTN, Smoking, COPD, CAD, Cancer, CVA, ARF, Chemo, Hep., AIDS, mental health diagnosis, sleep apnea, morbid obesity)? @ -[Coronary artery disease Was patient admitted / discharged? Hospital course, mention meds given and route, prescriptions, significant lab abnormalities, going to OR and other pertinent info. @ 53-year-old male with a 2 minute episode of atypical chest pain currently resolved. Given the patient's history I did offer observation for serial cardiac enzymes, telemetry, cardiology consultation. Patient declines. He prefers to be discharged. I am reassured by the fact his troponin is negative and this was drawn approximately 4 hours after his symptoms. I suspect a noncardiac cause of his chest pain. He is encouraged to return to the emergency department with any worsening or changing symptoms. Undiagnosed new problem with uncertain prognosis? @ -No Drug Therapy requiring intensive monitoring for toxicity (Heparin, Nitro, Insulin, Cardizem)? @ -No Were any procedures done? @ -No Diagnosis/symptom? @ -[Chest pain, resolved Acute, or Chronic, or Acute on Chronic? @ Acute Uncomplicated (without systemic symptoms) or Complicated (systemic symptoms)? @ -default Side effects of treatment? @ -No Exacerbation, Progression, or Severe Exacerbation? @ -No Poses a threat to life or bodily function? How? (Chest pain, [place], [place], pneumonia, PE, COPD, DKA, ARF, appy, cholecystitis, CVA, Diverticulitis, Homicidal, Suicidal, threat to staff... and all critical care pts) @ -[Low risk at this time (Luis Cintron) Disposition <Jordan Leon - Last Filed: 04/19/23 13:24> Is patient prescribed a controlled substance at d/c from ED?: No <Luis Cintron - Last Filed: 04/19/23 15:17> Clinical Impression: Chest pain Disposition: HOME SELF-CARE Condition: Fair Instructions (If sedation given, give patient instructions): Chest Pain (ED) Referrals: Suhas Howell MD [Primary Care Provider] - 1-2 days
--- NOTE | 2023-04-19 14:20 | XR ---
EXAMINATION TYPE: XR chest 2V DATE OF EXAM: 04/19/2023 2:12 PM COMPARISON: Chest radiographs from 06/10/2019 TECHNIQUE: XR chest 2V Frontal and lateral views of the chest. CLINICAL INDICATION:Male, 63 years old with history of Chest Pain; FINDINGS: Lungs/Pleura: There is no evidence of pleural effusion, focal consolidation, or pneumothorax. Elevat ion of the right hemidiaphragm. Pulmonary vascularity: Unremarkable. Heart/mediastinum: Cardiomediastinal silhouette is unremarkable. Single-lead cardiac conduction devic e overlying the left hemithorax with lead projecting over the right ventricle. Musculoskeletal: No acute osseous pathology. IMPRESSION: No acute cardiopulmonary disease/process.
== END 2023-04-19 15:41 | disposition home or self-care (01) ==
LOC: EC 11:52
DX: R07.89 Other chest pain (principal); R00.0 Tachycardia, unspecified; I25.2 Old myocardial infarction; Z79.82 Long term (current) use of aspirin
CPT/HCPCS: 36415; 71046; 80053; 83735; 84484; 85025; 85610; 85730; 93005; 99285

== ENCOUNTER 2024-04-14 18:56 | Emergency (ER) | payer MEDICARE, OTHER ==
[2024-04-14 19:11] VITALS: TEMP 98.4
--- NOTE | 2024-04-14 20:17 | ED ---
General Adult HPI - General Chief complaint: Headache Stated complaint: Weakness Time Seen by Provider: 04/14/24 19:35 Source: patient, family, RN notes reviewed, old records reviewed Mode of arrival: ambulatory Limitations: no limitations - History of Present Illness Initial comments: 64-year-old male presenting for evaluation of "not feeling well, patient had accidentally missed taken his medication over the past several days. He had developed a headache yesterday which was relieved by Tylenol. This was not the worst headache of his life and he is not worried about his head. He states that he felt some odd sensation to his left arm and was concerned about his heart. He is presenting today with concerns that this may have been an issue related to his heart. He denies any symptoms at the time my evaluation. - Related Data Home Medications Medication Instructions Recorded Confirmed Atorvastatin [Lipitor] 40 mg PO HS 06/07/19 06/09/19 Previous Rx's Medication Instructions Recorded Aspirin EC [Ecotrin Low Dose] 81 mg PO DAILY #30 tablet. 04/13/19 Nitroglycerin Sl Tabs [Nitrostat] 0.4 mg SUBLINGUAL Q5M PRN #100 tab 04/13/19 Spironolactone [Aldactone] 25 mg PO DAILY #30 tab 04/13/19 lisinopriL [Zestril] 2.5 mg PO BID #60 tab 04/13/19 Metoprolol Tartrate [Lopressor] 12.5 mg PO BID tab 04/19/19 Cephalexin [Keflex] 500 mg PO Q8HR #10 cap 06/10/19 Allergies Allergy/AdvReac Type Severity Reaction Status Date / Time No Known Allergies Allergy Verified 04/19/23 12:26 Review of Systems ROS Statement: Those systems with pertinent positive or pertinent negative responses have been documented in the HPI. ROS Other: All systems not noted in ROS Statement are negative. Past Medical History Past Medical History: Hyperlipidemia, Hypertension, Myocardial Infarction ([place]) Last Myocardial Infarction Date:: 03/2019 History of Any Multi-Drug Resistant Organisms: None Reported Past Surgical History: Heart Catheterization With Stent Additional Past Surgical History / Comment(s): stents x 2, defibulator Past Anesthesia/Blood Transfusion Reactions: No Reported Reaction Date of Last Stent Placement:: 03/2019 Past Psychological History: No Psychological Hx Reported Smoking Status: Never smoker Past Alcohol Use History: Rare Past Drug Use History: None Reported - Past Family History Father Family Medical History: Cancer General Exam Limitations: no limitations General appearance: alert, in no apparent distress Head exam: Present: atraumatic, normocephalic Eye exam: Present: normal appearance, PERRL ENT exam: Present: normal exam Neck exam: Present: normal inspection. Absent: tenderness, meningismus Respiratory exam: Present: normal lung sounds bilaterally. Absent: respiratory distress, wheezes Cardiovascular Exam: Present: regular rate, normal rhythm GI/Abdominal exam: Present: soft. Absent: distended, tenderness, guarding Extremities exam: Present: normal capillary refill Neurological exam: Present: alert, oriented X3, CN II-XII intact. Absent: motor sensory deficit Psychiatric exam: Present: normal affect, normal mood Skin exam: Present: warm, dry, intact Course Vital Signs 04/14/24 19:08 Temperature 98.4 F Pulse Rate 77 Respiratory 16 Rate Blood Pressure 152/85 O2 Sat by Pulse 97 Oximetry Medical Decision Making - Medical Decision Making Was pt. sent in by a medical professional or institution (YASSINE Suárez, TEST ANALYST, urgent care, hospital, or long-term...) When possible be specific @ -No Did you speak to anyone other than the patient for history (EMS, parent, family, police, friend...)? What history was obtained from this source @ -No Did you review nursing and triage notes (agree or disagree)? Why? @ -I reviewed and agree with nursing and triage notes Were old charts reviewed (outside hosp., previous admission, EMS record, old EKG, old radiological studies, urgent care reports/EKG's, long-term records)? Report findings @ -No old charts were reviewed Differential Palpitations Ventricular arrhythmias, atrial arrhythmias, myocardial infarction, anemia, thyrotoxicosis, electrolyte imbalance, hypokalemia, pulmonary embolism, pulmonary disease, drugs, alcohol, anxiety, stress.... This is not meant to be an all-inclusive list. EKG interpreted by me (3pts min.). @EKG: Sinus rhythm with first-degree AV block, rate of 75, CA interval 219, QRS duration 98, QTc [address] segment elevation. X-rays interpreted by me (1pt min.). @ -None done CT interpreted by me (1pt min.). @ -None done U/S interpreted by me (1pt. min.). @ -None done What testing was considered but not performed or refused? (CT, X-rays, U/S, labs)? Why? @ -None What meds were considered but not given or refused? Why? @ -None Did you discuss the management of the patient with other professionals (professionals i.e. , PA, TEST ANALYST, lab, RT, psych nurse, foster care social worker, tool turret lathe set up operator, teacher, chief program officer, correctional case manager)? Give summary @ -No Was smoking cessation discussed for >3mins.? @ -No Was critical care preformed (if so, how long)? @ -No Were there social determinants of health that impacted care today? How? (Homelessness, low income, unemployed, alcoholism, drug addiction, transportation, low edu. Level, literacy, decrease access to med. care, long term, rehab)? @ -No Was there de-escalation of care discussed even if they declined (Discuss DNR or withdrawal of care, Hospice)? DNR status @ -No What co-morbidities impacted this encounter? (DM, HTN, Smoking, COPD, CAD, Cancer, CVA, ARF, Chemo, Hep., AIDS, mental health diagnosis, sleep apnea, morbid obesity)? @Coronary artery disease. Was patient admitted / discharged? Hospital course, mention meds given and route, prescriptions, significant lab abnormalities, going to OR and other pertinent info. @ -64-year-old male presenting with nonspecific symptoms with concern that his symptoms could be cardiac related. He has no chest pain. EKG sinus without definitive signs of ischemia. CBC, CMP and troponin are negative. I did ask the patient if this was his primary reason for presentation and he is reassured by the testing we have done. He request no further testing he will monitor symptoms and return as needed. Undiagnosed new problem with uncertain prognosis? @ -No Drug Therapy requiring intensive monitoring for toxicity (Heparin, Nitro, Insulin, Cardizem)? @ -No Were any procedures done? @ -No Diagnosis/symptom? @ -[Palpitation Acute, or Chronic, or Acute on Chronic? @ -Default Uncomplicated (without systemic symptoms) or Complicated (systemic symptoms)? @ -Default Side effects of treatment? @ -No Exacerbation, Progression, or Severe Exacerbation? @ -No Poses a threat to life or bodily function? How? (Chest pain, [place], [place], pneumonia, PE, COPD, DKA, ARF, appy, cholecystitis, CVA, Diverticulitis, Homicidal, Suicidal, threat to staff... and all critical care pts) @ -No - Lab Data Result diagrams: 04/14/24 20:07 04/14/24 20:07 Lab Results 04/14/24 04/14/24 04/14/24 Range/Units 20:07 20:07 20:07 WBC 6.5 (3.8-10.6) k/uL RBC 5.27 (4.30-5.90) m/uL Hgb 15.9 (13.0-17.5) gm/dL Hct 47.1 (39.0-53.0) % MCV 89.4 (80.0-100.0) fL MCH 30.1 (25.0-35.0) pg MCHC 33.6 (31.0-37.0) g/dL RDW 13.1 (11.5-15.5) % Plt Count 177 (150-450) k/uL MPV 7.2 Neutrophils % 78 % Lymphocytes % 16 % Monocytes % 4 % Eosinophils % 2 % Basophils % 0 % Neutrophils # 5.0 (1.3-7.7) k/uL Lymphocytes # 1.0 (1.0-4.8) k/uL Monocytes # 0.2 (0-1.0) k/uL Eosinophils # 0.1 (0-0.7) k/uL Basophils # 0.0 (0-0.2) k/uL PT 11.4 (10.0-12.5) sec INR 1.1 (<1.2) APTT 24.3 (22.0-30.0) sec Sodium 138 (137-145) mmol/L Potassium 3.8 (3.5-5.1) mmol/L Chloride 102 (98-107) mmol/L Carbon Dioxide 25 (22-30) mmol/L Anion Gap 11 mmol/L BUN 16 (9-20) mg/dL Creatinine 1.08 (0.66-1.25) mg/dL Est GFR (CKD-EPI)AfAm 82 (>60 ml/min/1.73 sqM) Est GFR (CKD-EPI)NonAf 71 (>60 ml/min/1.73 sqM) Glucose 142 H (74-99) mg/dL Calcium 9.5 (8.4-10.2) mg/dL Magnesium 2.0 (1.6-2.3) mg/dL Total Bilirubin 0.9 (0.2-1.3) mg/dL AST 26 (17-59) U/L ALT 17 (4-49) U/L Alkaline Phosphatase 50 (38-126) U/L Troponin I (0.000-0.034) ng/mL Total Protein 7.4 (6.3-8.2) g/dL Albumin 4.8 (3.5-5.0) g/dL 04/14/24 Range/Units 20:07 WBC (3.8-10.6) k/uL RBC (4.30-5.90) m/uL Hgb (13.0-17.5) gm/dL Hct (39.0-53.0) % MCV (80.0-100.0) fL MCH (25.0-35.0) pg MCHC (31.0-37.0) g/dL RDW (11.5-15.5) % Plt Count (150-450) k/uL MPV Neutrophils % % Lymphocytes % % Monocytes % % Eosinophils % % Basophils % % Neutrophils # (1.3-7.7) k/uL Lymphocytes # (1.0-4.8) k/uL Monocytes # (0-1.0) k/uL Eosinophils # (0-0.7) k/uL Basophils # (0-0.2) k/uL PT (10.0-12.5) sec INR (<1.2) APTT (22.0-30.0) sec Sodium (137-145) mmol/L Potassium (3.5-5.1) mmol/L Chloride (98-107) mmol/L Carbon Dioxide (22-30) mmol/L Anion Gap mmol/L BUN (9-20) mg/dL Creatinine (0.66-1.25) mg/dL Est GFR (CKD-EPI)AfAm (>60 ml/min/1.73 sqM) Est GFR (CKD-EPI)NonAf (>60 ml/min/1.73 sqM) Glucose (74-99) mg/dL Calcium (8.4-10.2) mg/dL Magnesium (1.6-2.3) mg/dL Total Bilirubin (0.2-1.3) mg/dL AST (17-59) U/L ALT (4-49) U/L Alkaline Phosphatase (38-126) U/L Troponin I <0.012 (0.000-0.034) ng/mL Total Protein (6.3-8.2) g/dL Albumin (3.5-5.0) g/dL Disposition Clinical Impression: Headache, Palpitation Disposition: HOME SELF-CARE Condition: Fair Instructions (If sedation given, give patient instructions): Acute Headache (ED) Is patient prescribed a controlled substance at d/c from ED?: No Referrals: Suhas Howell MD [Primary Care Provider] - 1-2 days Time of Disposition: 20:48
[2024-04-14 20:18] LABS: Basophils % (A) 0 %; Eosinophils # (A) 0.1 k/uL (0-0.7); Eosinophils % (A) 2 %; HCT 47.1 % (39.0-53.0); HGB 15.9 gm/dL (13.0-17.5); Lymphocytes % (A) 16 %; MCH 30.1 pg (25.0-35.0); MCHC 33.6 g/dL (31.0-37.0); MCV 89.4 fL (80.0-100.0); Mean Platelet Volume 7.2; Monocytes # (A) 0.2 k/uL (0-1.0); Monocytes % (A) 4 %; Neutrophils % (A) 78 %; Platelet Count 177 k/uL (150-450); RBC 5.27 m/uL (4.30-5.90); RDW 13.1 % (11.5-15.5); WBC 6.5 k/uL (3.8-10.6)
[2024-04-14 20:33] LABS: ALT 17 U/L (4-49); AST 26 U/L (17-59); African American GFR (CKD) 82 (>60 ml/min/1.73 sqM); Albumin 4.8 g/dL (3.5-5.0); Alkaline Phosphatase 50 U/L (38-126); Anion Gap 11 mmol/L; Blood Urea Nitrogen 16 mg/dL (9-20); Calcium 9.5 mg/dL (8.4-10.2); Carbon Dioxide 25 mmol/L (22-30); Chloride 102 mmol/L (98-107); Glucose 142 mg/dL (74-99); Non-African American GFR(CKD) 71 (>60 ml/min/1.73 sqM); Potassium 3.8 mmol/L (3.5-5.1); Sodium 138 mmol/L (137-145); Total Bilirubin 0.9 mg/dL (0.2-1.3); Total Protein 7.4 g/dL (6.3-8.2)
[2024-04-14 20:45] LABS: INR 1.1 (<1.2); Partial Thromboplastin Time 24.3 sec (22.0-30.0); Prothrombin Time 11.4 sec (10.0-12.5)
[2024-04-14 21:06] VITALS: BP 128/77; PULSE 72; RESP 18
== END 2024-04-14 21:08 | disposition home or self-care (01) ==
LOC: EC 18:56
CPT/HCPCS: 36415; 80053; 83735; 84484; 85025; 85610; 85730; 93005; 99284